=== PATIENT | male | born 1960 | race Caucasian/White ===

== ENCOUNTER 2017-08-26 09:01 | Inpatient (IN) | payer BC ==
[2017-08-26] MEDS ORDERED: FAMOTIDINE IV 20 MG/12 ML VIAL IVPUSH ONE (09:32)
[2017-08-26] MEDS ORDERED: ONDANSETRON 4 MG/2 ML VIAL IVPUSH ONE (09:33)
[2017-08-26] MEDS ORDERED: SUCRALFATE 1 GM/10 ML UNIT DOSE CUPS PO ONE (09:33)
[2017-08-26] MEDS ORDERED: MAG HYDROX/AL HYDROX/SIMETH 355 ML ORAL.SUSP PO ONE (09:33)
[2017-08-26] MEDS ORDERED: SODIUM CHLORIDE 1,000 ML IV STA (09:35)
--- NOTE | 2017-08-26 09:44 | PDOC ---
History of Present Illness - General Chief Complaint: Pain Stated Complaint: ABD PAIN Time Seen by Provider: 08/26/17 09:13 History Source: Patient, Family - History of Present Illness Timing/Duration: reports: other Abdominal Pain Onset Location: reports: epigastric Pain Radiation: reports: no radiation Past History - Past Medical History Allergies/Adverse Reactions: Allergies Allergy/AdvReac Type Severity Reaction Status Date / Time No Known Allergies Allergy Verified 08/26/17 09:06 Home Medications: Ambulatory Orders Omeprazole 40 mg PO DAILY 08/26/17 Ranitidine HCl 150 mg PO BID 08/26/17 COPD: No - Surgical History Cholecystectomy: Yes - Suicide/Smoking/Psychosocial Hx Smoking History: Never smoked Review of Systems - Review of Systems Constitutional: No: Chills, Fever, Unexplained wgt Loss Respiratory: No: Shortness of Breath Cardiac (ROS): No: Chest Pain ABD/GI: Yes: Nausea, Vomiting. No: Blood Streaked Bowels, Constipated, Diarrhea : Yes: Hematuria. No: Dysuria, Flank Pain *Physical Exam - Vital Signs Last Vital Signs Temp Pulse Resp BP Pulse Ox 98.2 F 69 18 122/68 99 08/26/17 09:02 08/26/17 09:02 08/26/17 09:02 08/26/17 09:02 08/26/17 09:02 - Physical Exam General Appearance: Yes: Appropriately Dressed, Mild Distress HEENT: positive: Normal Voice Neck: positive: Supple Respiratory/Chest: positive: Lungs Clear, Normal Breath Sounds. negative: Respiratory Distress Cardiovascular: positive: Regular Rate, S1, S2 Gastrointestinal/Abdominal: positive: Tender (sig ttp to epigatrium, no RUQ ttp , no CVAT) Musculoskeletal: positive: Normal Inspection. negative: CVA Tenderness Extremity: positive: Normal Inspection Integumentary: positive: Dry, Warm Neurologic: positive: Fully Oriented, Alert, Normal Mood/Affect ED Treatment Course - LABORATORY CBC & Chemistry Diagram: 08/26/17 10:05 08/26/17 10:05 Medical Decision Making - Medical Decision Making 08/26/17 09:43 57-year-old male, endorses history of gastric ulcer that was diagnosed on endoscopy 2 years ago on omeprazole daily, s/p fatou, here with severe nonradiating epigastric pain that started at 3 AM today and has been constant. Also complaining of 2 episodes of nonbilious, nonbloody vomitus. This a.m. Has not attempted to eat secondary to pain. No changes to bowel movements, fever or chills. Denies chest pain or shortness of breath. Patient also reporting intermittent "red urine" for the past 2 weeks without dysuria or flank pain. Has not been medically evaluated for unclear reasons. Does not currently have a PMD. No history of kidney stones. Non-smoker. No unexplained weight loss. Also c/o generalized pruritis x 2 weeks. No h/o liver disease and no etoh use per pt See exam Epigastric pain w/ dark urine and pruritis Concern for liver pathology, s/p fatou though can have a de alma CBD stone -pain control -labs -US -?CT 08/26/17 11:25 White count of 16 with significantly elevated LFTs including alk phos of >700 and bilirubin of 5. Will get ultrasound at this time as d/w Dr Garcia. Will possibly need MRCP or EUS 08/26/17 12:33 US read as specific dilatation of common bile duct 0.7 cm. Liver appears unremarkable with no obvious mass seen. Will admit and consult with GI at this point for possible MRCP 08/26/17 12:44 Case discussed with hospitalist and patient admitted. Blood culture and antibiotics in progress as discussed with Liz 08/26/17 13:33 Case d/w Dr. Kruger who will evaluate patient *DC/Admit/Observation/Transfer Diagnosis at time of Disposition: Epigastric pain, Transaminitis - Discharge Dispostion Condition at time of disposition: Fair Admit: Yes - Referrals - Patient Instructions - Post Discharge Activity
[2017-08-26] MEDS ORDERED: ONDANSETRON 4 MG/2 ML VIAL ONE (10:09)
[2017-08-26] MEDS ORDERED: MAG HYDROX/AL HYDROX/SIMETH 30 ML UNIT-DOSE CUP ONE (10:09)
[2017-08-26] MEDS ORDERED: SUCRALFATE 1 GM TABLET (FP) ONE (10:09)
[2017-08-26] MEDS ORDERED: FAMOTIDINE 20 MG/50 ML IVPB 20 MG/50 ML MG IVPB ONE (10:09)
[2017-08-26 10:20] LABS: BASO % 0.2 % (0-2.0); EOS % 0.1 % (0-4.5); HEMATOCRIT 37.9 % (35.4-49); HEMOGLOBIN 12.6 GM/dL (11.7-16.9); LYMPH % 7.6 % (8-40); MCHC 33.2 g/dl (32.0-35.9); MEAN CELL VOLUME 96.6 fl (80-96); MEAN PLT VOLUME 9.9 fl (7.5-11.1); MONO % 6.5 % (3.8-10.2); NEUT % 85.6 % (42.8-82.8); PLATELET COUNT 296 K/MM3 (134-434); RBC 3.93 M/mm3 (4.00-5.60); RDW 14.8 % (11.9-15.9); WHITE BLOOD COUNT 16.8 K/mm3 (4.0-10.0)
[2017-08-26 10:23] LABS: URINE APPEARANCE SLCLOUDY; URINE BLOOD 1+ (NEGATIVE); URINE COLOR AMBER; URINE GLUCOSE (UA) NEGATIVE (NEGATIVE); URINE KETONE NEGATIVE (NEGATIVE); URINE LEUK ESTERASE NEGATIVE (NEGATIVE); URINE NITRITE NEGATIVE (NEGATIVE); URINE PROTEIN NEGATIVE (NEGATIVE); URINE UROBILINOGEN 4.0 E.U/dl mg/dL (0.2-1.0)
[2017-08-26 10:28] LABS: EPI CELLS RARE /HPF (FEW); URINE BACTERIA RARE /hpf (NONE SEEN); URINE MUCUS FEW
[2017-08-26 10:47] LABS: ALBUMIN 3.2 g/dl (3.4-5.0); ANION GAP 8 (8-16); BILIRUBIN,TOTAL 5.3 mg/dL (0.2-1.0); BLOOD UREA NITROGEN 19 mg/dL (7-18); CALCIUM 9.1 mg/dL (8.5-10.1); CHLORIDE 103 mmol/L (98-107); CO2 26 mmol/L (21-32); GLUCOSE,RANDOM 172 mg/dL (74-106); LIPASE 160 U/L (73-393); POTASSIUM 4.1 mmol/L (3.5-5.1); SGOT/AST 176 U/L (15-37); SGPT/ALT 254 U/L (12-78); SODIUM 137 mmol/L (136-145); TOT PROT 8.1 g/dl (6.4-8.2)
[2017-08-26 10:50] LABS: ALK PHOS 709 U/L (45-117)
[2017-08-26] MEDS ORDERED: morphine CARPU-JECT 4 MG/1 ML DISP.SYRIN IVPUSH ONE (11:47)
[2017-08-26] MEDS ORDERED: morphine CARPU-JECT 10 MG/1 ML DISP.SYRIN ONE (12:00)
[2017-08-26] MEDS ORDERED: PIPERACILLIN/TAZOB 3.375 GM/50 ML PRE-DOCKED IVPB ONE (12:45)
[2017-08-26] MEDS ORDERED: PIPERACILLIN/TAZOB 3.375 GM 3.375 GM/50 ML BAG IVPB ONE (13:21)
[2017-08-26] MEDS ORDERED: morphine CARPU-JECT 10 MG/1 ML DISP.SYRIN IVPUSH PRN (13:35)
--- NOTE | 2017-08-26 13:40 | HP ---
Admitting History and Physical - Admission Chief Complaint: Abd pain, N/V History of Present Illness: 57 y/o gentleman with h/o PUD , and CCY 2002 who presented with acute onset Abd pain since 4 am this am . last night , 4 hours after dinner he had an episode of burning in epigastric area , then resolved . this am at 4 am he developed sharp pain, pain was located in epigastric area, with no radiation. he also had N/V or what he ate the night before. denies hematemesis. no diarrhea or constipation, has no fever or chills. denies dysuria . for the past 3 -4 weeks, he has not been feeling well, and has been noticing red urine ( tea color) and itching . No one told him he was yellow. He has a h/o CCY due to stones in 2002, since then he denies any Abd pain . Last EGD and colonoscopy were last year in [facility], he was told he had ulcer in stomach . He marshall snot have GI doc or PCP in [place] . In ER: LFTS were elevated, US with mild dilation in CBD 0.7 cm . given a dose of zosyn, and blood cx were sent History Source: Patient, Family Member Limitations to Obtaining History: No Limitations - Past Medical History Gastrointestinal: Yes: Peptic Ulcer Disease - Past Surgical History Past Surgical History: Yes: Cholecystectomy (2002) - Smoking History Smoking history: Current some day smoker (occasional [place] smoker once a week) Have you smoked in the past 12 months: Yes - Alcohol/Substance Use Hx Alcohol Use: No History of Substance Use: reports: None - Social History ADL: Independent Home Medications - Allergies Allergies/Adverse Reactions: Allergies Allergy/AdvReac Type Severity Reaction Status Date / Time No Known Allergies Allergy Verified 08/26/17 09:06 - Home Medications Home Medications: Ambulatory Orders Omeprazole 20 mg PO DAILY 08/26/17 Ranitidine HCl 150 mg PO BID 08/26/17 Family Disease History - Family Disease History Family History: Unremarkable Other Family History: no Hx of colon cancer or pancreatic cancer Review of Systems - Review of Systems Constitutional: reports: Chills (once 3 weeks ago). denies: Diaphoresis, Fever , Lethargy, Malaise, Night Sweats, Weakness Eyes: denies: Blind Spots, Blurred Vision, Double Vision, Eye Pain, Photophobia HENT: denies: Difficult Swallowing, Ear Discharge, Ear Pain, Hearing Loss, Throat Pain Neck: denies: Decreased ROM, Lumps, Pain on Movement, Stiffness, Tenderness Cardiovascular: denies: Chest Pain, Edema, Palpitations, Shortness of Breath Respiratory: denies: Cough, Exercise Intolerance, Hemoptysis, Snoring, SOB Gastrointestinal: reports: Abdominal Pain. denies: Bloating, Constipation, Diarrhea, Dysphagia, Melena, Nausea, Vomiting Genitourinary: denies: Burning, Discharge, Dysuria Breasts: denies: Breast Implants, Discharge from Nipple, Pain, Skin Changes Musculoskeletal: denies: Back Pain, Crepitus, Muscle Pain Neurological: denies: Change in LOC, Change in Speech, Confusion, Headache, Seizure, Syncope, Tremors Psychiatric: denies: Anxiety, Depression Physical Examination Vital Signs: Vital Signs Temperature 98.2 F 08/26/17 09:02 Pulse Rate 68 08/26/17 13:00 Respiratory Rate 20 08/26/17 13:00 Blood Pressure 114/89 08/26/17 13:00 O2 Sat by Pulse Oximetry (%) 99 08/26/17 09:02 Findings/Remarks: NAD , AAOx3 . pleasant and cooperative HEENT: EOMI, round equal pupils reactive tolight , icteric sclera, jaundiced MM and skin. no facial droop. No JVD . MMM CV: RRR, 2/6 SM at RUSB, no JVD Lungs: CTAB Abd: soft, ND, TTP in epigastric area with no rebound tenderness or guarding, nl BS . Ext: no erythema or edema . neuro : EOMI, round equal pupils reactive to light , no facial droop, uvula at mid line . strength 5/5 in upper and lower extremities , proximally and distally. reflexes 2+ knee jerk , and 2+ biceps b/l . HENT: Yes: Drooling Labs: CBC, BMP 08/26/17 10:05 08/26/17 10:05 Imaging - Results Ultrasound: Report Reviewed Assessment/Plan 57 y/o gentleman with h/o PUD , and CCY 2002 who presented with acute onset Abd pain since 4 am this am. he was found to have LFTS abn and mild dilationin CBD 1- Abd pain: in the setting of leukocytosis , hyperbiribunemia and a cholestatic picture of LFTs Abn, with acute onset abd pain, there is a high suspicion for acute cholangitis from an obstructing stone. With the h/o itching and dark urine x 3-4 weeks , an obstructive pancreatic mass or a cholangiocarcinoma need to be R/O. - start ceftriaxone and flagyl . - blood cx sent - Urgent MRCP w mayo to evaluate CBD and pancreas paranchyma - will call GI for possible gabrielle fro urgent ERCP if an obstructive stone is found - follow LFTS - check lactic acid - start IVF. - NPO pending further Recs from GI 2- Volume depletion : elevated BUN. - IVF 3- h/o PUD: no suspicion for perforation. - Iv PPI 4- Dvt px: SCDs for now , hold heparin pending any ERCP . Plan was explained to pt and his son at bed side Visit type - Emergency Visit Emergency Visit: Yes ED Registration Date: 08/26/17 Care time: The patient presented to the Emergency Department on the above date and was hospitalized for further evaluation of their emergent condition. - New Patient This patient is new to me today: Yes Date on this admission: 08/26/17 - Critical Care Critical Care patient: No
[2017-08-26] MEDS ORDERED: SODIUM CHLORIDE 1,000 ML IV SCH (13:45)
[2017-08-26] MEDS ORDERED: PANTOPRAZOLE SODIUM 40 MG VIAL ONE (14:09)
--- NOTE | 2017-08-26 14:10 | EKG ---
Test Reason : Blood Pressure : / mmHG Vent. Rate : 065 BPM Atrial Rate : 065 BPM P-R Int : 156 ms QRS Dur : 074 ms QT Int : 408 ms P-R-T Axes : 038 006 012 degrees QTc Int : 424 ms NORMAL SINUS RHYTHM NORMAL ECG NO PREVIOUS ECGS AVAILABLE Confirmed by RANJIT IVAN, JOSE ([id number]) on 08/26/2017 2:10:08 PM Referred By: Confirmed By:JOSE CHURCH MD
[2017-08-26] MEDS: PANTOPRAZOLE SODIUM 40 MG VIAL IVPUSH SCH (14:15)
[2017-08-26 15:24] VITALS: BMI 23.3
--- NOTE | 2017-08-26 15:55 | CON.GI ---
Consult Consult Specialty:: Gastroenterology ( covering Dr Phillip) Referred by:: Dr. Arden Wagner Reason for Consultation:: Jaundice and pain - History of Present Illness Chief Complaint: Awoken at 4AM with severe colicky epigastric pain History of Present Illness: 57M was awoken at 4AM with severe epigastric colicky pain. It is different form his remote ulcer pain and not responsive to omeprazole and maalox. It does not radiate. He has nausea but no vomiting. He has had pruritus, dark urine and malaise for the past 3 weeks. He denies weight loss and melena. He had a cholecystectomy remotely. He has never had a colonosocpy but did have an EGD that discovered his ulcer. No transfusions. Denies liver disease. 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 Place of : Other ([facility]) History of Recent Travel: No Home Medications - Allergies Allergies/Adverse Reactions: Allergies Allergy/AdvReac Type Severity Reaction Status Date / Time No Known Allergies Allergy Verified 08/26/17 09:06 - Home Medications Home Medications: Ambulatory Orders Omeprazole 20 mg PO DAILY 08/26/17 Ranitidine HCl 150 mg PO BID 08/26/17 Family Disease History - Family Disease History Family Disease History: Heart Disease: Father ( [place] age 65), Other: Mother ( young unknown circumstances) Other Family History: no Hx of colon cancer or pancreatic cancer Review of Systems - Review of Systems Constitutional: reports: Loss of Appetite, Malaise Eyes: reports: No Symptoms HENT: reports: No Symptoms Neck: reports: No Symptoms Cardiovascular: reports: No Symptoms Respiratory: reports: No Symptoms Gastrointestinal: reports: Abdominal Pain, Nausea Genitourinary: reports: No Symptoms Musculoskeletal: reports: No Symptoms Integumentary: reports: No Symptoms Neurological: reports: No Symptoms Physical Exam-GI Vital Signs: Vital Signs Temperature 98.2 F 08/26/17 09:02 Pulse Rate 68 08/26/17 15:18 Respiratory Rate 18 08/26/17 15:18 Blood Pressure 149/63 08/26/17 15:18 O2 Sat by Pulse Oximetry (%) 96 08/26/17 15:18 CBC,CMP WBC 16.8 K/mm3 (4.0-10.0) H 08/26/17 10:05 RBC 3.93 M/mm3 (4.00-5.60) L 08/26/17 10:05 Hgb 12.6 GM/dL (11.7-16.9) 08/26/17 10:05 Hct 37.9 % (35.4-49) 08/26/17 10:05 MCV 96.6 fl (80-96) H 08/26/17 10:05 MCH 32.0 pg (25.7-33.7) 08/26/17 10:05 MCHC 33.2 g/dl (32.0-35.9) 08/26/17 10:05 RDW 14.8 % (11.9-15.9) 08/26/17 10:05 Plt Count 296 K/MM3 (134-434) 08/26/17 10:05 MPV 9.9 fl (7.5-11.1) 08/26/17 10:05 Neutrophils % 85.6 % (42.8-82.8) H 08/26/17 10:05 Lymphocytes % 7.6 % (8-40) L 08/26/17 10:05 Monocytes % 6.5 % (3.8-10.2) 08/26/17 10:05 Eosinophils % 0.1 % (0-4.5) 08/26/17 10:05 Basophils % 0.2 % (0-2.0) 08/26/17 10:05 Sodium 137 mmol/L (136-145) 08/26/17 10:05 Potassium 4.1 mmol/L (3.5-5.1) 08/26/17 10:05 Chloride 103 mmol/L (98-107) 08/26/17 10:05 Carbon Dioxide 26 mmol/L (21-32) 08/26/17 10:05 Anion Gap 8 (8-16) 08/26/17 10:05 BUN 19 mg/dL (7-18) H 08/26/17 10:05 Creatinine 1.0 mg/dL (0.7-1.3) 08/26/17 10:05 Creat Clearance w eGFR > 60 (>60) 08/26/17 10:05 Random Glucose 172 mg/dL (74-106) H 08/26/17 10:05 Lactic Acid 1.7 mmol/L (0.4-2.0) 08/26/17 14:10 Calcium 9.1 mg/dL (8.5-10.1) 08/26/17 10:05 Total Bilirubin 5.3 mg/dL (0.2-1.0) H 08/26/17 10:05 AST 176 U/L (15-37) H 08/26/17 10:05 ALT 254 U/L (12-78) H 08/26/17 10:05 Alkaline Phosphatase 709 U/L (45-117) H 08/26/17 10:05 Creatine Kinase 67 IU/L (39-308) 08/26/17 10:05 Troponin I < 0.02 ng/ml (0.00-0.05) 08/26/17 10:05 Total Protein 8.1 g/dl (6.4-8.2) 08/26/17 10:05 Albumin 3.2 g/dl (3.4-5.0) L 08/26/17 10:05 Lipase 160 U/L (73-393) 08/26/17 10:05 Current Medications Generic Name Dose Route Start Last Admin Trade Name Freq PRN Reason Stop Dose Admin Sodium Chloride 1,000 mls @ 75 mls/hr 08/26/17 13:45 08/26/17 13:47 Normal Saline - IV 75 mls/hr ASDIR STACEY Administration CEFTRIAXONE 1 G/50 ML PREMIX 50 mls @ 100 mls/hr 08/26/17 19:00 Ceftriaxone 1 Gm-D5w Bag IVPB DAILY STACEY Metronidazole 500 mg in 100 mls @ 100 mls/hr 08/26/17 18:00 Flagyl 500mg Premixed Ivpb - IVPB Q8H-IV STACEY Morphine Sulfate 2 mg 08/26/17 13:35 Morphine Injection - IVPUSH Q4H PRN PAIN Pantoprazole Sodium 40 mg 08/26/17 13:45 08/26/17 14:15 Protonix Iv IVPUSH 40 mg DAILY STACEY Administration Constitutional: Yes: Calm Eyes: Yes: Sclera Icterus HENT: Yes: Normocephalic Neck: Yes: Supple Cardiovascular: Yes: Regular Rate and Rhythm Respiratory: Yes: CTA Bilaterally Gastrointestinal Inspection: Yes: Scars (healed lap choly incisions) ...Auscultate: Yes: Normoactive Bowel Sounds ...Palpate: Yes: Tenderness, Epigastium (mild) ...Rectal Exam: Yes: Guaiac Negative, Sphincter Tone Normal Genitourinary: Yes: Other (1+ prostate) Edema: No Peripheral Pulses WNL: Yes Neurological: Yes: Alert, Oriented Labs: CBC, BMP 08/26/17 10:05 08/26/17 10:05 Laboratory Tests 08/26/17 10:05 Total Bilirubin 5.3 H AST 176 H ALT 254 H Alkaline Phosphatase 709 H Lipase 160 Imaging - Results Ultrasound: Image Reviewed (cbd 7mm) Problem List - Problems (1) Biliary colic Code(s): K80.50 - CALCULUS OF BILE DUCT W/O CHOLANGITIS OR CHOLECYST W/O OBST (2) Obstructive jaundice Assessment/Plan: Suspect recurrent gallstones as the cause of biliary colic, jaundice,dark urine and pruritus. I have discussed the likely need for ERCP , sphincterotomy and stenting to relieve jaundice due to stones or malignancy. I have informed him of the risks of ascending cholangitis, liver failure and biliary pancreatitis with his current condition. I have explained to risks of perforation, hemorrhage and multiorgan failure that can arise as a result of ERCP induced pancreatitis. He has signed an informed consent. I will try to schedule tomorrow. I have asked for Dr Frost to call me with the MRCP results. Agree with the need for antibiotics to protect against ascending cholangitis. Discussed the case with Dr Wagner. Dr Phillip will return tomorrow. Code(s): K83.8 - OTHER SPECIFIED DISEASES OF BILIARY TRACT (3) History of peptic ulcer Code(s): Z87.11 - PERSONAL HISTORY OF PEPTIC ULCER DISEASE (4) History of laparoscopic cholecystectomy Code(s): Z98.890 - OTHER SPECIFIED POSTPROCEDURAL STATES; Z90.49 - ACQUIRED ABSENCE OF OTHER SPECIFIED PARTS OF DIGESTIVE TRACT
[2017-08-26] MEDS ORDERED: diphenhydrAMINE HCL 25 MG CAPSULE (FP) PO PRN (16:24)
[2017-08-26] MEDS: METRONIDAZOLE 500 MG PREMIXED 500 MG/100 ML MG IVPB SCH (18:22)
[2017-08-26] MEDS: CEFTRIAXONE 1 G/50 ML PREMIX 50 ML IVPB SCH (18:22)
[2017-08-26] MEDS ORDERED: METRONIDAZOLE 500 MG PREMIXED 500 MG/100 ML MG IVPB SCH (20:00)
[2017-08-26] MEDS ORDERED: CEFTRIAXONE 1 GM in DEXTROSE 5%-WATER - 50 ML IVPB SCH (20:00)
[2017-08-27] MEDS: METRONIDAZOLE 500 MG PREMIXED 500 MG/100 ML MG IVPB SCH ×3 (02:49→18:03)
--- NOTE | 2017-08-27 05:43 | PN ---
Physical Exam: SUBJECTIVE: Patient seen and examined OBJECTIVE: Vital Signs Period Temp Pulse Resp BP Sys/Gill Pulse Ox Last 24 Hr 98.0 F-98.2 F 57-69 18-20 112-149/55-89 94-99 GENERAL: The patient is awake, alert, and fully oriented, in no acute distress. HEAD: Normal with no signs of trauma. EYES: PERRL, extraocular movements intact, sclera anicteric, conjunctiva clear. No ptosis. ENT: Ears normal, nares patent, oropharynx clear without exudates, moist mucous membranes. NECK: Trachea midline, full range of motion, supple. LUNGS: Breath sounds equal, clear to auscultation bilaterally, no wheezes, no crackles, no accessory muscle use. HEART: Regular rate and rhythm, S1, S2 without murmur, rub or gallop. ABDOMEN: Soft, nontender, nondistended, normoactive bowel sounds, no guarding, no rebound, no hepatosplenomegaly, no masses. EXTREMITIES: 2+ pulses, warm, well-perfused, no edema. NEUROLOGICAL: Cranial nerves II through XII grossly intact. Normal speech, gait not observed. PSYCH: Normal mood, normal affect. SKIN: Warm, dry, normal turgor, no rashes or lesions noted Laboratory Results - last 24 hr 08/26/17 08/26/17 08/26/17 10:03 10:05 10:05 WBC 16.8 H RBC 3.93 L Hgb 12.6 Hct 37.9 MCV 96.6 H MCH 32.0 MCHC 33.2 RDW 14.8 Plt Count 296 MPV 9.9 Neutrophils % 85.6 H Lymphocytes % 7.6 L Monocytes % 6.5 Eosinophils % 0.1 Basophils % 0.2 Sodium 137 Potassium 4.1 Chloride 103 Carbon Dioxide 26 Anion Gap 8 BUN 19 H Creatinine 1.0 Creat Clearance w eGFR > 60 Random Glucose 172 H Lactic Acid Calcium 9.1 Total Bilirubin 5.3 H AST 176 H ALT 254 H Alkaline Phosphatase 709 H Creatine Kinase 67 Troponin I < 0.02 Total Protein 8.1 Albumin 3.2 L Lipase 160 Urine Color Mary Urine Appearance Slcloudy Urine pH 5.0 Ur Specific Wana 1.026 Urine Protein Negative Urine Glucose (UA) Negative Urine Ketones Negative Urine Blood 1+ H Urine Nitrite Negative Urine Bilirubin 4.0 Urine Urobilinogen 4.0 e.u/dl Ur Leukocyte Esterase Negative Urine WBC (Auto) 3 Urine RBC (Auto) 2 Ur Epithelial Cells Rare Urine Bacteria Rare Urine Mucus Few 08/26/17 14:10 WBC RBC Hgb Hct MCV MCH MCHC RDW Plt Count MPV Neutrophils % Lymphocytes % Monocytes % Eosinophils % Basophils % Sodium Potassium Chloride Carbon Dioxide Anion Gap BUN Creatinine Creat Clearance w eGFR Random Glucose Lactic Acid 1.7 Calcium Total Bilirubin AST ALT Alkaline Phosphatase Creatine Kinase Troponin I Total Protein Albumin Lipase Urine Color Urine Appearance Urine pH Ur Specific Wana Urine Protein Urine Glucose (UA) Urine Ketones Urine Blood Urine Nitrite Urine Bilirubin Urine Urobilinogen Ur Leukocyte Esterase Urine WBC (Auto) Urine RBC (Auto) Ur Epithelial Cells Urine Bacteria Urine Mucus Active Medications Generic Name Dose Route Start Last Admin Trade Name Freq PRN Reason Stop Dose Admin Diphenhydramine HCl 25 mg 08/26/17 16:24 Benadryl - PO Q8H PRN FOR ITCHING Sodium Chloride 1,000 mls @ 75 mls/hr 08/26/17 13:45 08/26/17 13:47 Normal Saline - IV 75 mls/hr ASDIR STACEY Administration CEFTRIAXONE 1 G/50 ML PREMIX 50 mls @ 100 mls/hr 08/26/17 19:00 08/26/17 18: 22 Ceftriaxone 1 Gm-D5w Bag IVPB 100 mls/hr DAILY STACEY Administration Metronidazole 500 mg in 100 mls @ 100 mls/hr 08/26/17 18:00 08/27/17 02:49 Flagyl 500mg Premixed Ivpb - IVPB 100 mls/hr Q8H-IV STACEY Administration Morphine Sulfate 2 mg 08/26/17 13:35 Morphine Injection - IVPUSH Q4H PRN PAIN Pantoprazole Sodium 40 mg 08/26/17 13:45 08/26/17 14:15 Protonix Iv IVPUSH 40 mg DAILY STACEY Administration ASSESSMENT/PLAN: Visit type - Emergency Visit Emergency Visit: Yes ED Registration Date: 08/26/17 Care time: The patient presented to the Emergency Department on the above date and was hospitalized for further evaluation of their emergent condition. - New Patient This patient is new to me today: Yes Date on this admission: 08/27/17 - Critical Care Critical Care patient: No
--- NOTE | 2017-08-27 08:13 | PN ---
Physical Exam: SUBJECTIVE: Patient seen and examined. Feels better than yesterday. Continues to have some abdominal pain, but reports less than yesterday. No BM today. Denies fever, chills, n/v. No sob or CP. OBJECTIVE: Vital Signs Period Temp Pulse Resp BP Sys/Gill Pulse Ox Last 24 Hr 98.0 F-98.2 F 56-69 18-20 112-149/55-89 94-99 GENERAL: sitting in bed, nad, aaox3, family at bedside EYES: sclera icterus, conjunctiva clear ENT: MMM LUNGS: CTAB HEART: rrr, normal s1/s2, no m/r/g ABDOMEN: Soft, non-distened, mild ttp to deep palpation in RUQ < epigastric area , normoactive BS bowel sounds LOWER EXTREMITIES: 2+ DP pulses, wwp, no edema NEUROLOGICAL: Cranial nerves II through XII grossly intact. Normal speech, gait not observed. PSYCH: Normal mood, normal affect. SKIN: Warm, dry, normal turgor, no rashes or lesions noted CBC, BMP 08/27/17 09:49 08/27/17 09:49 Hepatic Panel Total Bilirubin 6.0 mg/dL (0.2-1.0) H 08/27/17 09:49 AST 104 U/L (15-37) H D 08/27/17 09:49 ALT 174 U/L (12-78) H D 08/27/17 09:49 Alkaline Phosphatase 568 U/L (45-117) H 08/27/17 09:49 Albumin 2.7 g/dl (3.4-5.0) L 08/27/17 09:49 Microbiology 08/26/17 13:36 Blood - Peripheral Venous Blood Culture - Preliminary NO GROWTH OBTAINED AFTER 24 HOURS, INCUBATION TO CONTINUE FOR 4 DAYS. 08/26/17 13:36 Blood - Peripheral Venous Blood Culture - Preliminary NO GROWTH OBTAINED AFTER 24 HOURS, INCUBATION TO CONTINUE FOR 4 DAYS. 08/26/17 10:03 Urine - Urine Clean Catch Urine Culture - Final NO GROWTH OBTAINED Active Medications Diphenhydramine HCl (Benadryl -) 25 mg PO Q8H PRN PRN Reason: FOR ITCHING Metronidazole (Flagyl 500mg Premixed Ivpb -) 500 mg in 100 mls @ 100 mls/hr IVPB Q8H-IV STACEY Last Admin: 08/27/17 18:03 Dose: 100 mls/hr Cefazolin Sodium (Ancef -) 1 gm in 10 mls @ 100 mls/hr IVPUSH Q8H-IV STACEY Last Admin: 08/27/17 20:13 Dose: 100 mls/hr Lactated Ringer's (Lactated Ringers Solution) 1,000 ml in 1,000 mls @ 175 mls/ hr IV ASDIR STAECY Stop: 08/28/17 06:00 Last Admin: 08/27/17 22:49 Dose: 175 mls/hr Lactated Ringer's (Lactated Ringers Solution) 1,000 ml in 1,000 mls @ 150 mls/ hr IV ASDIR STACEY Stop: 08/28/17 12:00 Lactated Ringer's (Lactated Ringers Solution) 1,000 ml in 1,000 mls @ 125 mls/ hr IV ASDIR STACEY Morphine Sulfate (Morphine Injection -) 2 mg IVPUSH Q4H PRN PRN Reason: PAIN Pantoprazole Sodium (Protonix -) 40 mg PO DAILY [facility] Last Admin: 08/27/17 18:03 Dose: 40 mg ASSESSMENT/PLAN: 57yo man with PMH of PUD and CCY (2002) who presented with acute onset abdominal pain and found to have elevated LFTs and dilated CBD suspicious for cholangitis. #abdominal with WBC, abnormal LFTs and acute onset abdominal pain, which have improved today. Possibly patient passed retained stone. MRCP revealed no stones , only mildly dilated CBD. -GI consulted. Will go for ERCP today to r/o choledocholithiasis, cholangitis -start ceftriaxone and flagyl -f/u cultures -IVFs, will d/c when diet advanced per GI #h/o PUD - will switch IVP to PO after ERCP #FEN: IVF / lytes wnl / NPO, advance per GI #PPX -DVT - hold A/C 48h post ERCP, SCD's -GI - on PPI #DISPO: continue m/s FULL code d/w Dr. Bernard Ruth MD PGY1 - Internal Medicine Visit type - Emergency Visit Emergency Visit: No - New Patient This patient is new to me today: Yes Date on this admission: 08/27/17 - Critical Care Critical Care patient: No
[2017-08-27 09:54] LABS: BASO % 1.6 % (0-2.0); EOS % 1.3 % (0-4.5); HEMATOCRIT 35.2 % (35.4-49); HEMOGLOBIN 11.7 GM/dL (11.7-16.9); LYMPH % 25.7 % (8-40); MCH 32.5 pg (25.7-33.7); MCHC 33.3 g/dl (32.0-35.9); MEAN CELL VOLUME 97.5 fl (80-96); MONO % 10.7 % (3.8-10.2); NEUT % 60.7 % (42.8-82.8); PLATELET COUNT 245 K/MM3 (134-434); RBC 3.61 M/mm3 (4.00-5.60); RDW 14.9 % (11.9-15.9); WHITE BLOOD COUNT 6.9 K/mm3 (4.0-10.0)
[2017-08-27] MEDS ORDERED: PT OWN MED DRAWER 7, Y5N ONE ×2 (09:57→18:11)
[2017-08-27 10:19] LABS: INR 1.11 (0.82-1.09); PROTHROMBIN TIME (PATIENT) 12.5 SEC (9.98-11.88)
[2017-08-27 10:37] LABS: ALBUMIN 2.7 g/dl (3.4-5.0); ALK PHOS 568 U/L (45-117); ANION GAP 8 (8-16); BLOOD UREA NITROGEN 13 mg/dL (7-18); CALCIUM 8.9 mg/dL (8.5-10.1); CHLORIDE 109 mmol/L (98-107); CO2 25 mmol/L (21-32); CREATININE 0.9 mg/dL (0.7-1.3); GLUCOSE,RANDOM 104 mg/dL (74-106); MAGNESIUM 2.2 mg/dL (1.8-2.4); PHOSPHOROUS 2.8 mg/dL (2.5-4.9); POTASSIUM 3.8 mmol/L (3.5-5.1); SGOT/AST 104 U/L (15-37); SGPT/ALT 174 U/L (12-78); SODIUM 142 mmol/L (136-145); TOT PROT 6.8 g/dl (6.4-8.2)
[2017-08-27] MEDS: CEFTRIAXONE 1 G/50 ML PREMIX 50 ML IVPB SCH (11:12)
[2017-08-27] MEDS: PANTOPRAZOLE SODIUM 40 MG VIAL IVPUSH SCH (11:12)
--- NOTE | 2017-08-27 11:30 | PN ---
Progress Note, Physician History of Present Illness: Had RUQ pain last night. Good response to pain medication. Asymptomatic this am. Comfortable. Family at bedside. - Current Medication List Current Medications: Active Medications Diphenhydramine HCl (Benadryl -) 25 mg PO Q8H PRN PRN Reason: FOR ITCHING Sodium Chloride (Normal Saline -) 1,000 mls @ 75 mls/hr IV ASDIR [facility] Last Admin: 08/26/17 13:47 Dose: 75 mls/hr CEFTRIAXONE 1 G/50 ML PREMIX (Ceftriaxone 1 Gm-D5w Bag) 50 mls @ 100 mls/hr IVPB DAILY [facility] Last Admin: 08/27/17 11:12 Dose: 100 mls/hr Metronidazole (Flagyl 500mg Premixed Ivpb -) 500 mg in 100 mls @ 100 mls/hr IVPB Q8H-IV [facility] Last Admin: 08/27/17 10:01 Dose: 100 mls/hr Morphine Sulfate (Morphine Injection -) 2 mg IVPUSH Q4H PRN PRN Reason: PAIN Pantoprazole Sodium (Protonix Iv) 40 mg IVPUSH DAILY [facility] Last Admin: 08/27/17 11:12 Dose: 40 mg - Objective Vital Signs: Vital Signs Temperature 98.2 F 08/27/17 08:39 Pulse Rate 52 L 08/27/17 08:39 Respiratory Rate 18 08/27/17 08:39 Blood Pressure 135/75 08/27/17 08:39 O2 Sat by Pulse Oximetry (%) 94 L 08/26/17 21:00 Constitutional: Yes: Well Nourished, No Distress, Calm Gastrointestinal: Yes: Soft. No: Distention, Melena, Rectal Bleeding, Tenderness, Tenderness, Epigastrium, Tenderness, Rebound Neurological: Yes: Alert, Oriented Labs: CBC, BMP 08/27/17 09:49 08/27/17 09:49 INR, PTT INR 1.11 (0.82-1.09) 08/27/17 09:49 Abnormal Lab Results 08/27/17 08/27/17 08/27/17 09:49 09:49 09:49 RBC 3.61 L Hct 35.2 L MCV 97.5 H Monocytes % 10.7 H PT with INR 12.50 H Chloride 109 H Total Bilirubin 6.0 H AST 104 H D ALT 174 H D Alkaline Phosphatase 568 H Albumin 2.7 L - ....Imaging Ultrasound: Report Reviewed MRI: Report Reviewed Problem List - Problems (1) Cholestasis Code(s): K83.1 - OBSTRUCTION OF BILE DUCT (2) Biliary colic Code(s): K80.50 - CALCULUS OF BILE DUCT W/O CHOLANGITIS OR CHOLECYST W/O OBST (3) Obstructive jaundice Code(s): K83.8 - OTHER SPECIFIED DISEASES OF BILIARY TRACT Assessment/Plan Non-toxic apperance, comfortable. Abx abd pain control. ERCP planned for today.
[2017-08-27] MEDS ORDERED: PROPOFOL 20 ML ONE (14:56)
[2017-08-27] MEDS ORDERED: ROCURONIUM BROMIDE 50 MG/5 ML VIAL ONE (14:56)
[2017-08-27] MEDS ORDERED: ONDANSETRON 4 MG/2 ML VIAL ONE (14:56)
--- NOTE | 2017-08-27 15:34 | PN ---
Teaching Attending Note Name of Resident: Linda Ruth ATTENDING PHYSICIAN STATEMENT I saw and evaluated the patient. I reviewed the resident's note and discussed the case with the resident. I agree with the resident's findings and plan as documented. SUBJECTIVE: no fever or chills, Abd pain has significantly improved . no N/V. OBJECTIVE: NAD , AAOx3 . pleasant and cooperative HEENT: icteric sclera, jaundiced MM and skin. No JVD . MMM CV: RRR, 2/6 SM at RUSB, no JVD Lungs: CTAB Abd: soft, ND, minimal TTP in epigastric area with no rebound tenderness or guarding, nl BS . Ext: no erythema or edema . ASSESSMENT AND PLAN: 57 y/o gentleman with h/o PUD , and CCY 2002 who presented with acute onset Abd pain since 4 am this am. he was found to have LFTS abn and mild dilationin CBD 1- Transaminitis: MRCP with no evidence stones, or tumors. LFTS abn ( cholestatic picture), and acute onset abd pain yesterday am along with decreased ALT, ASt suggest a passed stone. The h/o itching nad dark urine x 4 weeks suggest a chronic ongowing process. ? primary sclerosing cholangitis - ERCP today - check P-ANCA - check AMA , KATELYNN , ANd anti-LK abs - after ERCP might introduce diet , dmitry d/w GI - cont Ceftriaxone and flagyl - if allowed to eat, will dc IVF 2- h/o PUD: - PPI . can switch to po after procedure 4- Dvt px: SCDs for now , hold heparin pending any ERCP.
[2017-08-27] MEDS ORDERED: NEOSTIGMINE METHYLSULFATE 0.5 MG/1 ML - 10 ML MDV ONE (15:49)
--- NOTE | 2017-08-27 16:43 | PN ---
Progress Note (short form) - Note Progress Note: GI Procedure NOte: Please see scanned ERCP report. Had 4 CBD stones and pus extracted. Had bleeding after stone extractions so epinephrine was injected and a stent had to be placed. Findings discussed with family. Informed them of the need for repeat ERCP to remove stent in 3-4 months. Problem List - Problems (1) Biliary colic Code(s): K80.50 - CALCULUS OF BILE DUCT W/O CHOLANGITIS OR CHOLECYST W/O OBST (2) Obstructive jaundice Code(s): K83.8 - OTHER SPECIFIED DISEASES OF BILIARY TRACT (3) History of peptic ulcer Code(s): Z87.11 - PERSONAL HISTORY OF PEPTIC ULCER DISEASE (4) History of laparoscopic cholecystectomy Code(s): Z98.890 - OTHER SPECIFIED POSTPROCEDURAL STATES; Z90.49 - ACQUIRED ABSENCE OF OTHER SPECIFIED PARTS OF DIGESTIVE TRACT
[2017-08-27] MEDS: LACTATED RINGERS SOLUTION 1,000 ML/1,000 ML INFUS.BAG IV SCH ×2 (17:30→18:03)
[2017-08-27] MEDS: PANTOPRAZOLE 40 MG TABLET (FP) PO SCH (18:03)
[2017-08-27] MEDS: CEFAZOLIN 1 GM PUSH 1 GM/10 ML DISP.SYRIN IVPUSH SCH (20:13)
[2017-08-27] MEDS ORDERED: LACTATED RINGERS SOLUTION 1,000 ML/1,000 ML INFUS.BAG IV SCH (23:30)
[2017-08-28] MEDS: METRONIDAZOLE 500 MG PREMIXED 500 MG/100 ML MG IVPB SCH ×3 (03:16→17:14)
[2017-08-28] MEDS: CEFAZOLIN 1 GM PUSH 1 GM/10 ML DISP.SYRIN IVPUSH SCH ×3 (03:16→17:14)
[2017-08-28] MEDS ORDERED: LACTATED RINGERS SOLUTION 1,000 ML/1,000 ML INFUS.BAG IV SCH (06:00)
[2017-08-28 08:00] LABS: EOS % 0.8 % (0-4.5); HEMATOCRIT 33.6 % (35.4-49); HEMOGLOBIN 11.3 GM/dL (11.7-16.9); LYMPH % 19.6 % (8-40); MCH 32.4 pg (25.7-33.7); MCHC 33.6 g/dl (32.0-35.9); MEAN CELL VOLUME 96.2 fl (80-96); MEAN PLT VOLUME 10.6 fl (7.5-11.1); MONO % 10.2 % (3.8-10.2); NEUT % 68.4 % (42.8-82.8); PLATELET COUNT 234 K/MM3 (134-434); RBC 3.49 M/mm3 (4.00-5.60); RDW 14.8 % (11.9-15.9); WHITE BLOOD COUNT 8.8 K/mm3 (4.0-10.0)
[2017-08-28 08:33] LABS: ALBUMIN 2.4 g/dl (3.4-5.0); ALK PHOS 489 U/L (45-117); ANION GAP 10 (8-16); BILIRUBIN,TOTAL 5.2 mg/dL (0.2-1.0); BLOOD UREA NITROGEN 9 mg/dL (7-18); CALCIUM 8.7 mg/dL (8.5-10.1); CHLORIDE 105 mmol/L (98-107); CO2 26 mmol/L (21-32); CREATININE 0.9 mg/dL (0.7-1.3); GLUCOSE,RANDOM 124 mg/dL (74-106); POTASSIUM 3.6 mmol/L (3.5-5.1); SGOT/AST 85 U/L (15-37); SGPT/ALT 129 U/L (12-78); SODIUM 141 mmol/L (136-145); TOT PROT 6.2 g/dl (6.4-8.2)
[2017-08-28 08:41] LABS: INR 1.11 (0.82-1.09); PROTHROMBIN TIME (PATIENT) 12.5 SEC (9.98-11.88)
--- NOTE | 2017-08-28 08:55 | PN ---
Progress Note, Physician History of Present Illness: No events overnight. pain-free. No BMs, no vomiting, no back pain. Tmax 99.1 - Current Medication List Current Medications: Active Medications Diphenhydramine HCl (Benadryl -) 25 mg PO Q8H PRN PRN Reason: FOR ITCHING Metronidazole (Flagyl 500mg Premixed Ivpb -) 500 mg in 100 mls @ 100 mls/hr IVPB Q8H-IV [facility] Last Admin: 08/28/17 03:16 Dose: 100 mls/hr Cefazolin Sodium (Ancef -) 1 gm in 10 mls @ 100 mls/hr IVPUSH Q8H-IV [facility] Last Admin: 08/28/17 03:16 Dose: 100 mls/hr Lactated Ringer's (Lactated Ringers Solution) 1,000 ml in 1,000 mls @ 150 mls/ hr IV ASDIR [facility] Stop: 08/28/17 12:00 Last Admin: 08/28/17 06:16 Dose: 150 mls/hr Lactated Ringer's (Lactated Ringers Solution) 1,000 ml in 1,000 mls @ 125 mls/ hr IV ASDIR [facility] Morphine Sulfate (Morphine Injection -) 2 mg IVPUSH Q4H PRN PRN Reason: PAIN Pantoprazole Sodium (Protonix -) 40 mg PO DAILY [facility] [place] Last Admin: 08/27/17 18:03 Dose: 40 mg - Objective Vital Signs: Vital Signs Temperature 98.4 F 08/28/17 06:00 Pulse Rate 52 L 08/28/17 06:00 Respiratory Rate 20 08/28/17 06:00 Blood Pressure 129/70 08/28/17 06:00 O2 Sat by Pulse Oximetry (%) 96 08/27/17 17:15 Constitutional: Yes: No Distress, Calm Eyes: Yes: Conjunctiva Clear Gastrointestinal: Yes: Soft. No: Distention, Tenderness, Tenderness, Epigastrium, Tenderness, Rebound Neurological: Yes: Alert Labs: CBC, BMP 08/28/17 06:00 INR, PTT INR 1.11 (0.82-1.09) 08/27/17 09:49 Abnormal Lab Results 08/27/17 08/27/17 08/27/17 09:49 09:49 09:49 RBC 3.61 L Hgb Hct 35.2 L MCV 97.5 H Monocytes % 10.7 H PT with INR 12.50 H Chloride 109 H Total Bilirubin 6.0 H AST 104 H D ALT 174 H D Alkaline Phosphatase 568 H Albumin 2.7 L 08/28/17 06:00 RBC 3.49 L Hgb 11.3 L Hct 33.6 L MCV 96.2 H Monocytes % PT with INR Chloride Total Bilirubin AST ALT Alkaline Phosphatase Albumin Problem List - Problems (1) Cholestasis Code(s): K83.1 - OBSTRUCTION OF BILE DUCT (2) Biliary colic Code(s): K80.50 - CALCULUS OF BILE DUCT W/O CHOLANGITIS OR CHOLECYST W/O OBST (3) Obstructive jaundice Code(s): K83.8 - OTHER SPECIFIED DISEASES OF BILIARY TRACT Assessment/Plan Choledocolithiasis, cholangitis. S/p ercp w/ sphincterotomy, gallstones extraction, epi injection. Clinically doing well. Follow am labs
[2017-08-28] MEDS ORDERED: PT OWN MED DRAWER 7, Y5N ONE ×2 (08:57→17:08)
[2017-08-28] MEDS: PANTOPRAZOLE 40 MG TABLET (FP) PO SCH (09:10)
--- NOTE | 2017-08-28 12:32 | PN ---
Progress Note (short form) - Note Progress Note: Anesthesiology Post-op POD#1 s/p ERCP under GA. No ON issues, pt. without current complaints. VSS.
[2017-08-28] MEDS: LACTATED RINGERS SOLUTION 1,000 ML/1,000 ML INFUS.BAG IV SCH ×2 (14:09→23:40)
--- NOTE | 2017-08-28 14:21 | PN ---
Teaching Attending Note Name of Resident: Linda Ruth ATTENDING PHYSICIAN STATEMENT I saw and evaluated the patient. I reviewed the resident's note and discussed the case with the resident. I agree with the resident's findings and plan as documented. SUBJECTIVE: Patient is doing well, has no further pain. No fever or chills, no shortness of breath. OBJECTIVE: Vital Signs Temperature 98.4 F 08/28/17 06:00 Pulse Rate 52 L 08/28/17 06:00 Respiratory Rate 20 08/28/17 06:00 Blood Pressure 129/70 08/28/17 06:00 O2 Sat by Pulse Oximetry (%) 95 08/27/17 21:00 CBCD WBC 8.8 K/mm3 (4.0-10.0) 08/28/17 06:00 RBC 3.49 M/mm3 (4.00-5.60) L 08/28/17 06:00 Hgb 11.3 GM/dL (11.7-16.9) L 08/28/17 06:00 Hct 33.6 % (35.4-49) L 08/28/17 06:00 MCV 96.2 fl (80-96) H 08/28/17 06:00 MCHC 33.6 g/dl (32.0-35.9) 08/28/17 06:00 RDW 14.8 % (11.9-15.9) 08/28/17 06:00 Plt Count 234 K/MM3 (134-434) 08/28/17 06:00 MPV 10.6 fl (7.5-11.1) 08/28/17 06:00 CMP Sodium 141 mmol/L (136-145) 08/28/17 06:00 Potassium 3.6 mmol/L (3.5-5.1) 08/28/17 06:00 Chloride 105 mmol/L (98-107) 08/28/17 06:00 Carbon Dioxide 26 mmol/L (21-32) 08/28/17 06:00 Anion Gap 10 (8-16) 08/28/17 06:00 BUN 9 mg/dL (7-18) D 08/28/17 06:00 Creatinine 0.9 mg/dL (0.7-1.3) 08/28/17 06:00 Creat Clearance w eGFR > 60 (>60) 08/28/17 06:00 Random Glucose 124 mg/dL (74-106) H 08/28/17 06:00 Calcium 8.7 mg/dL (8.5-10.1) 08/28/17 06:00 Total Bilirubin 5.2 mg/dL (0.2-1.0) H 08/28/17 06:00 AST 85 U/L (15-37) H 08/28/17 06:00 ALT 129 U/L (12-78) H D 08/28/17 06:00 Alkaline Phosphatase 489 U/L (45-117) H 08/28/17 06:00 Total Protein 6.2 g/dl (6.4-8.2) L 08/28/17 06:00 Albumin 2.4 g/dl (3.4-5.0) L 08/28/17 06:00 CARDIAC ENZYMES Creatine Kinase 67 IU/L (39-308) 08/26/17 10:05 Troponin I < 0.02 ng/ml (0.00-0.05) 08/26/17 10:05 Current Medications Generic Name Dose Route Start Last Admin Trade Name Freq PRN Reason Stop Dose Admin Diphenhydramine HCl 25 mg 08/26/17 16:24 Benadryl - PO Q8H PRN FOR ITCHING Metronidazole 500 mg in 100 mls @ 100 mls/hr 08/26/17 18:00 08/28/17 09:10 Flagyl 500mg Premixed Ivpb - IVPB 100 mls/hr Q8H-IV [facility] Administration Cefazolin Sodium 1 gm in 10 mls @ 100 mls/hr 08/27/17 18:00 08/28/17 10:36 Ancef - IVPUSH 100 mls/hr Q8H-IV [facility] Administration Lactated Ringer's 1,000 ml in 1,000 mls @ 125 mls/hr 08/28/17 12:00 08/28/17 14:09 Lactated Ringers Solution IV 125 mls/hr ASDIR [facility] Administration Morphine Sulfate 2 mg 08/26/17 13:35 Morphine Injection - IVPUSH Q4H PRN PAIN Pantoprazole Sodium 40 mg 08/27/17 17:30 08/28/17 09:10 Protonix - PO 40 mg DAILY [facility] Administration Home Medications Medication Instructions Recorded Omeprazole 20 mg PO DAILY 08/26/17 Ranitidine HCl 150 mg PO BID 08/26/17 Laboratory Tests 08/26/17 08/26/17 08/27/17 10:05 10:05 08:40 WBC 16.8 H Total Bilirubin 5.3 H AST 176 H ALT 254 H Alkaline Phosphatase 709 H C-Reactive Protein KATELYNN Screen Pending c-ANCA Proteinase 3 (PR3) p-ANCA Atypical p-ANCA Myeloperoxidase Ab Smooth Musc &SPECIAL EVENTS ASSISTANT Intrp Liver/Kid Microsomes Ab 08/27/17 08/27/17 08/27/17 08:40 09:49 09:49 WBC 6.9 D Total Bilirubin 6.0 H AST 104 H D ALT 174 H D Alkaline Phosphatase 568 H C-Reactive Protein KATELYNN Screen c-ANCA Pending Proteinase 3 (PR3) Pending p-ANCA Pending Atypical p-ANCA Pending Myeloperoxidase Ab Pending Smooth Musc &SPECIAL EVENTS ASSISTANT Intrp Pending Liver/Kid Microsomes Ab Pending 08/28/17 08/28/17 06:00 06:00 WBC 8.8 Total Bilirubin 5.2 H AST 85 H ALT 129 H D Alkaline Phosphatase 489 H C-Reactive Protein 4.6 H KATELYNN Screen c-ANCA Proteinase 3 (PR3) p-ANCA Atypical p-ANCA Myeloperoxidase Ab Smooth Musc &SPECIAL EVENTS ASSISTANT Intrp Liver/Kid Microsomes Ab PE: Soft abdomen, NT, NR. Rest of PE per resident's note ASSESSMENT AND PLAN: Patient is a 57 y/o gentleman with h/o PUD , and CCY 2002 who presented with acute onset of Abdominal pain and was found to have elevated LFTS with mild dilatation of CBD. # POD#1 s/p ERCP under [facility] for Acute Choledocolithiasis /cholangitis presented with elevated LFTs. s/p ercp w/ sphincterotomy, gallstones extraction, with epi injection. As per GI note; : Had 4 CBD stones and pus extracted. Had bleeding after stone extractions so epinephrine was injected and a stent had to be placed. Findings werer discussed with family. Informed them of the need for repeat ERCP to remove stent in 3-4 months. On IV antibiotic Rocephin/Flagyl. ERCP report as per s/p MRCP with no evidence stones, or tumors. Pending P-ANCA , check AMA , KATELYNN , ANd anti-LK abs # h/o PUD: on PPI continue Dvt px: SCDs , Heparin sq
--- NOTE | 2017-08-28 17:27 | PN ---
Physical Exam: SUBJECTIVE: Patient seen and examined. Offers no complaints. No fever, chills, n/v, abdominal pain. No BM. OBJECTIVE: Vital Signs Period Temp Pulse Resp BP Sys/Gill Pulse Ox Last 24 Hr 98.1 F-99.1 F 52-80 16-25 126-141/58-70 95 GENERAL: lying comfortably in bed, nad, aaox3 EYES: sclera icterus improving, conjunctiva clear ENT: MMM LUNGS: CTAB HEART: rrr, normal s1/s2, no m/r/g ABDOMEN: Soft, ntnd, normoactive BS bowel sounds LOWER EXTREMITIES: 2+ DP pulses, wwp, no edema CBC, BMP 08/28/17 06:00 08/28/17 06:00 Hepatic Panel Total Bilirubin 5.2 mg/dL (0.2-1.0) H 08/28/17 06:00 AST 85 U/L (15-37) H 08/28/17 06:00 ALT 129 U/L (12-78) H D 08/28/17 06:00 Alkaline Phosphatase 489 U/L (45-117) H 08/28/17 06:00 Albumin 2.4 g/dl (3.4-5.0) L 08/28/17 06:00 Microbiology 08/26/17 13:36 Blood - Peripheral Venous Blood Culture - Preliminary NO GROWTH OBTAINED AFTER 48 HOURS, INCUBATION TO CONTINUE FOR 3 DAYS. 08/26/17 13:36 Blood - Peripheral Venous Blood Culture - Preliminary NO GROWTH OBTAINED AFTER 48 HOURS, INCUBATION TO CONTINUE FOR 3 DAYS. 08/26/17 10:03 Urine - Urine Clean Catch Urine Culture - Final NO GROWTH OBTAINED Active Medications Diphenhydramine HCl (Benadryl -) 25 mg PO Q8H PRN PRN Reason: FOR ITCHING Heparin Sodium (Porcine) (Heparin -) 5,000 unit SQ TID [facility] Metronidazole (Flagyl 500mg Premixed Ivpb -) 500 mg in 100 mls @ 100 mls/hr IVPB Q8H-IV [facility] Last Admin: 08/28/17 17:14 Dose: 100 mls/hr Cefazolin Sodium (Ancef -) 1 gm in 10 mls @ 100 mls/hr IVPUSH Q8H-IV [facility] Last Admin: 08/28/17 17:14 Dose: 100 mls/hr Lactated Ringer's (Lactated Ringers Solution) 1,000 ml in 1,000 mls @ 125 mls/ hr IV ASDIR [facility] Last Admin: 08/28/17 14:09 Dose: 125 mls/hr Morphine Sulfate (Morphine Injection -) 2 mg IVPUSH Q4H PRN PRN Reason: PAIN Pantoprazole Sodium (Protonix -) 40 mg PO DAILY [facility] Last Admin: 08/28/17 09:10 Dose: 40 mg ASSESSMENT/PLAN: 57yo man with PMH of PUD and CCY (2002) who presented with acute onset abdominal pain and found to have elevated LFTs and dilated CBD suspicious for cholangitis. #POD1 s/p ERCP with stent and sphincterotomy for choledocholithiasis and cholangitis, 4 CBD stones extracted with pus, WBC and LFTs improving -GI consulted -Continue Cefazolin and flagyl, day 2 -continue LR @ 125cc/hr #h/o PUD - Protonix 40mg daily #FEN: IVF / lytes wnl / Clears, advance per GI #PPX -DVT - hold A/C 48h post ERCP, SCD's -GI - on PPI #DISPO: continue m/s, anticipate d/c within 24-48hours FULL code d/w Dr. Salvador Ruth MD PGY1 - Internal Medicine Visit type - Emergency Visit Emergency Visit: No - New Patient This patient is new to me today: No - Critical Care Critical Care patient: No
[2017-08-28] MEDS: HEPARIN NA (PORCINE) 5,000 UNITS/ML 1ML VIAL SQ SCH (22:00)
[2017-08-29] MEDS: METRONIDAZOLE 500 MG PREMIXED 500 MG/100 ML MG IVPB SCH ×3 (01:30→17:50)
[2017-08-29] MEDS: CEFAZOLIN 1 GM PUSH 1 GM/10 ML DISP.SYRIN IVPUSH SCH ×3 (02:13→17:50)
[2017-08-29] MEDS: HEPARIN NA (PORCINE) 5,000 UNITS/ML 1ML VIAL SQ SCH ×2 (05:33→17:49)
[2017-08-29 07:42] LABS: BASO % 0.3 % (0-2.0); EOS % 0.9 % (0-4.5); HEMATOCRIT 36.4 % (35.4-49); HEMOGLOBIN 12.2 GM/dL (11.7-16.9); LYMPH % 30.9 % (8-40); MCH 32.2 pg (25.7-33.7); MCHC 33.6 g/dl (32.0-35.9); MEAN CELL VOLUME 95.9 fl (80-96); MEAN PLT VOLUME 10.7 fl (7.5-11.1); NEUT % 57.9 % (42.8-82.8); PLATELET COUNT 257 K/MM3 (134-434); WHITE BLOOD COUNT 8.6 K/mm3 (4.0-10.0)
[2017-08-29 08:04] LABS: ALBUMIN 2.7 g/dl (3.4-5.0); ANION GAP 10 (8-16); BLOOD UREA NITROGEN 7 mg/dL (7-18); CHLORIDE 104 mmol/L (98-107); CO2 28 mmol/L (21-32); GLUCOSE,RANDOM 110 mg/dL (74-106); POTASSIUM 3.7 mmol/L (3.5-5.1); SODIUM 142 mmol/L (136-145)
[2017-08-29 08:08] LABS: ALK PHOS 519 U/L (45-117); BILIRUBIN,DIRECT 4.6 mg/dL (0.0-0.2); BILIRUBIN,TOTAL 5.6 mg/dL (0.2-1.0); CREATININE 0.8 mg/dL (0.7-1.3); SGOT/AST 84 U/L (15-37); SGPT/ALT 109 U/L (12-78); TOT PROT 6.6 g/dl (6.4-8.2)
[2017-08-29] MEDS: PANTOPRAZOLE 40 MG TABLET (FP) PO SCH (10:10)
[2017-08-29] MEDS: ONDANSETRON 4 MG TABLET PO PRN (10:41)
[2017-08-29] MEDS: ONDANSETRON 4 MG/2 ML VIAL IVPB PRN (11:04)
--- NOTE | 2017-08-29 11:52 | PN ---
Progress Note, Physician History of Present Illness: Nausea and vomiting, mild epigastric discomfort. Has some clears earlier in am. No pain. Liver enzymes, bili, ALP are going up this am - Current Medication List Current Medications: Active Medications Diphenhydramine HCl (Benadryl -) 25 mg PO Q8H PRN PRN Reason: FOR ITCHING Last Admin: 08/28/17 23:14 Dose: 25 mg Heparin Sodium (Porcine) (Heparin -) 5,000 unit SQ TID [facility] Last Admin: 08/29/17 05:33 Dose: 5,000 unit Metronidazole (Flagyl 500mg Premixed Ivpb -) 500 mg in 100 mls @ 100 mls/hr IVPB Q8H-IV [facility] Last Admin: 08/29/17 10:10 Dose: 100 mls/hr Cefazolin Sodium (Ancef -) 1 gm in 10 mls @ 100 mls/hr IVPUSH Q8H-IV [facility] Last Admin: 08/29/17 10:10 Dose: 100 mls/hr Lactated Ringer's (Lactated Ringers Solution) 1,000 ml in 1,000 mls @ 125 mls/ hr IV ASDIR [facility] Last Admin: 08/28/17 23:40 Dose: 125 mls/hr Morphine Sulfate (Morphine Injection -) 2 mg IVPUSH Q4H PRN PRN Reason: PAIN Ondansetron HCl (Zofran Injection) 8 mg IVPB Q6H PRN PRN Reason: NAUSEA Last Admin: 08/29/17 11:04 Dose: 8 mg Pantoprazole Sodium (Protonix -) 40 mg PO DAILY [facility] Last Admin: 08/29/17 10:10 Dose: 40 mg - Objective Vital Signs: Vital Signs Temperature 99.2 F 08/29/17 06:00 Pulse Rate 52 L 08/29/17 06:00 Respiratory Rate 20 08/29/17 06:00 Blood Pressure 128/53 08/29/17 06:00 O2 Sat by Pulse Oximetry (%) 95 08/28/17 09:00 Constitutional: Yes: Mild Distress Eyes: Yes: Conjunctiva Clear Gastrointestinal: Yes: Soft, Tenderness, Epigastrium, Vomiting. No: Abdomen, Obese, Ascites, Distention, Melena, Rectal Bleeding, Tenderness, Rebound Neurological: Yes: Alert, Oriented Labs: CBC, BMP 08/29/17 06:00 08/29/17 06:00 INR, PTT INR 1.11 (0.82-1.09) 08/28/17 06:00 Abnormal Lab Results 08/27/17 08/29/17 08/29/17 08:40 06:00 06:00 RBC 3.80 L Random Glucose 110 H Total Bilirubin 5.6 H Direct Bilirubin 4.6 H AST 84 H ALT 109 H Alkaline Phosphatase 519 H Albumin 2.7 L Smooth Musc &INSTALLATION COORDINATOR Intrp 28 H Problem List - Problems (1) Cholestasis Code(s): K83.1 - OBSTRUCTION OF BILE DUCT (2) Biliary colic Code(s): K80.50 - CALCULUS OF BILE DUCT W/O CHOLANGITIS OR CHOLECYST W/O OBST (3) Obstructive jaundice Code(s): K83.8 - OTHER SPECIFIED DISEASES OF BILIARY TRACT Assessment/Plan Choledocolithiasis, cholangitis. S/p ercp w/ sphincterotomy, gallstones extraction, epi injection. nausea, vomiting with worseing labs. ?obstructed again? vidafran liver chem, bili, ALP, lipase, CBC this PM NPO May need repeat ERCP.
--- NOTE | 2017-08-29 12:17 | PN ---
Physical Exam: SUBJECTIVE: Patient seen and examined. NBNB emesis overnight after family brought in Regular food last night. Tolerated Clears this morning, but C/o nausea and mild epigastric pain this morning. No fever or chills. No BM for several days. OBJECTIVE: Vital Signs Period Temp Pulse Resp BP Sys/Gill Pulse Ox Last 24 Hr 98.1 F-99.2 F 50-59 16-20 126-176/53-84 GENERAL: mild distress, aaox3 EYES: conjunctiva clear ENT: MMM LUNGS: CTAB HEART: rrr, normal s1/s2, no m/r/g ABDOMEN: Soft, non-distended, mild epigastric ttp, hyperactive BS LOWER EXTREMITIES: 2+ DP pulses, wwp, no edema CBC, BMP 08/29/17 06:00 08/29/17 06:00 Hepatic Panel Total Bilirubin 5.6 mg/dL (0.2-1.0) H 08/29/17 06:00 Direct Bilirubin 4.6 mg/dL (0.0-0.2) H 08/29/17 06:00 AST 84 U/L (15-37) H 08/29/17 06:00 ALT 109 U/L (12-78) H 08/29/17 06:00 Alkaline Phosphatase 519 U/L (45-117) H 08/29/17 06:00 Albumin 2.7 g/dl (3.4-5.0) L 08/29/17 06:00 Active Medications Diphenhydramine HCl (Benadryl -) 25 mg PO Q8H PRN PRN Reason: FOR ITCHING Last Admin: 08/28/17 23:14 Dose: 25 mg Heparin Sodium (Porcine) (Heparin -) 5,000 unit SQ TID [facility] Last Admin: 08/29/17 05:33 Dose: 5,000 unit Metronidazole (Flagyl 500mg Premixed Ivpb -) 500 mg in 100 mls @ 100 mls/hr IVPB Q8H-IV [facility] Last Admin: 08/29/17 10:10 Dose: 100 mls/hr Cefazolin Sodium (Ancef -) 1 gm in 10 mls @ 100 mls/hr IVPUSH Q8H-IV [facility] Last Admin: 08/29/17 10:10 Dose: 100 mls/hr Lactated Ringer's (Lactated Ringers Solution) 1,000 ml in 1,000 mls @ 100 mls/ hr IV ASDIR [facility] Morphine Sulfate (Morphine Injection -) 2 mg IVPUSH Q4H PRN PRN Reason: PAIN Ondansetron HCl (Zofran Injection) 8 mg IVPB Q6H PRN PRN Reason: NAUSEA Last Admin: 08/29/17 11:04 Dose: 8 mg Pantoprazole Sodium (Protonix -) 40 mg PO DAILY [facility] Last Admin: 08/29/17 10:10 Dose: 40 mg ASSESSMENT/PLAN: 57yo man with PMH of PUD and CCY (2002) who presented with acute onset abdominal pain and found to have elevated LFTs and ERCP finding choledocholithiasis and cholangitis. #POD2 s/p ERCP w/ stent and sphincterotomy for choledocholithiasis and cholangitis, 4 CBD stones extracted with pus, +smooth muscle Ab (?autoimmune hepatitis) -LFTs worse today, re-obstructed? will repeat in evening -GI consulted. Placed back to NPO -Continue Cefazolin and flagyl, day 3 -LR @ 100cc/hr #h/o PUD - Protonix 40mg daily #FEN: IVF / lytes wnl / NPO #PPX -DVT - hold A/C 48h post ERCP, SCD's -GI - on PPI #DISPO: continue m/s FULL code d/w Dr. Salvador Ruth MD PGY1 - Internal Medicine Visit type - Emergency Visit Emergency Visit: No - New Patient This patient is new to me today: No - Critical Care Critical Care patient: No
[2017-08-29] MEDS: LACTATED RINGERS SOLUTION 1,000 ML/1,000 ML INFUS.BAG IV SCH (13:23)
[2017-08-29 14:01] LABS: BASO % 2.2 % (0-2.0); EOS % 0.7 % (0-4.5); HEMATOCRIT 36.4 % (35.4-49); HEMOGLOBIN 12.3 GM/dL (11.7-16.9); LYMPH % 22.1 % (8-40); MCH 32.4 pg (25.7-33.7); MCHC 33.7 g/dl (32.0-35.9); MEAN CELL VOLUME 96.4 fl (80-96); MEAN PLT VOLUME 10.5 fl (7.5-11.1); MONO % 8.7 % (3.8-10.2); NEUT % 66.3 % (42.8-82.8); PLATELET COUNT 246 K/MM3 (134-434); RBC 3.78 M/mm3 (4.00-5.60); RDW 15.3 % (11.9-15.9); WHITE BLOOD COUNT 7.8 K/mm3 (4.0-10.0)
[2017-08-29 14:29] LABS: ALBUMIN 2.8 g/dl (3.4-5.0); BILIRUBIN,DIRECT 4.6 mg/dL (0.0-0.2); BILIRUBIN,TOTAL 5.5 mg/dL (0.2-1.0)
--- NOTE | 2017-08-29 14:44 | PN ---
Progress Note (short form) - Note Progress Note: GI NOte: Notified by Dr Phillip of rising LFTs. FUA to check whether stent has migrated. Will also try to get MRCP to help determine whether or not repeat ERCP is necessary. Will also need to exclude a hepatocellular process. Problem List - Problems (1) Biliary colic Code(s): K80.50 - CALCULUS OF BILE DUCT W/O CHOLANGITIS OR CHOLECYST W/O OBST (2) Obstructive jaundice Code(s): K83.8 - OTHER SPECIFIED DISEASES OF BILIARY TRACT (3) History of peptic ulcer Code(s): Z87.11 - PERSONAL HISTORY OF PEPTIC ULCER DISEASE (4) History of laparoscopic cholecystectomy Code(s): Z98.890 - OTHER SPECIFIED POSTPROCEDURAL STATES; Z90.49 - ACQUIRED ABSENCE OF OTHER SPECIFIED PARTS OF DIGESTIVE TRACT
[2017-08-29] MEDS ORDERED: PT OWN MED DRAWER 7, Y5N ONE (17:02)
--- NOTE | 2017-08-29 20:19 | PN ---
Teaching Attending Note Name of Resident: Linad Ruth ATTENDING PHYSICIAN STATEMENT I saw and evaluated the patient. I reviewed the resident's note and discussed the case with the resident. I agree with the resident's findings and plan as documented. SUBJECTIVE: PATIENT IS C/O HAVING ABDOMINAL PAIN. no chills, mild abdominal pain. OBJECTIVE: Vital Signs Temperature 98.0 F 08/29/17 19:29 Pulse Rate 82 08/29/17 19:29 Respiratory Rate 18 08/29/17 19:29 Blood Pressure 124/78 08/29/17 19:29 O2 Sat by Pulse Oximetry (%) 100 08/29/17 09:00 CBCD WBC 7.8 K/mm3 (4.0-10.0) 08/29/17 13:48 RBC 3.78 M/mm3 (4.00-5.60) L 08/29/17 13:48 Hgb 12.3 GM/dL (11.7-16.9) 08/29/17 13:48 Hct 36.4 % (35.4-49) 08/29/17 13:48 MCV 96.4 fl (80-96) H 08/29/17 13:48 MCHC 33.7 g/dl (32.0-35.9) 08/29/17 13:48 RDW 15.3 % (11.9-15.9) 08/29/17 13:48 Plt Count 246 K/MM3 (134-434) 08/29/17 13:48 MPV 10.5 fl (7.5-11.1) 08/29/17 13:48 CMP Sodium 142 mmol/L (136-145) 08/29/17 06:00 Potassium 3.7 mmol/L (3.5-5.1) 08/29/17 06:00 Chloride 104 mmol/L (98-107) 08/29/17 06:00 Carbon Dioxide 28 mmol/L (21-32) 08/29/17 06:00 Anion Gap 10 (8-16) 08/29/17 06:00 BUN 7 mg/dL (7-18) D 08/29/17 06:00 Creatinine 0.8 mg/dL (0.7-1.3) 08/29/17 06:00 Creat Clearance w eGFR > 60 (>60) 08/29/17 06:00 Random Glucose 110 mg/dL (74-106) H 08/29/17 06:00 Calcium 9.0 mg/dL (8.5-10.1) 08/29/17 06:00 Total Bilirubin 5.5 mg/dL (0.2-1.0) H 08/29/17 13:48 AST 87 U/L (15-37) H 08/29/17 13:48 ALT 110 U/L (12-78) H 08/29/17 13:48 Alkaline Phosphatase 527 U/L (45-117) H 08/29/17 13:48 Total Protein 7.0 g/dl (6.4-8.2) 08/29/17 13:48 Albumin 2.8 g/dl (3.4-5.0) L 08/29/17 13:48 CARDIAC ENZYMES Creatine Kinase 67 IU/L (39-308) 08/26/17 10:05 Troponin I < 0.02 ng/ml (0.00-0.05) 08/26/17 10:05 Current Medications Generic Name Dose Route Start Last Admin Trade Name Freq PRN Reason Stop Dose Admin Diphenhydramine HCl 25 mg 08/26/17 16:24 08/28/17 23:14 Benadryl - PO 25 mg Q8H PRN Administration FOR ITCHING Heparin Sodium (Porcine) 5,000 unit 08/28/17 22:00 08/29/17 17:49 Heparin - SQ Not Given TID STACEY Metronidazole 500 mg in 100 mls @ 100 mls/hr 08/26/17 18:00 08/29/17 17:50 Flagyl 500mg Premixed Ivpb - IVPB 100 mls/hr Q8H-IV STACEY Administration Cefazolin Sodium 1 gm in 10 mls @ 100 mls/hr 08/27/17 18:00 08/29/17 17:50 Ancef - IVPUSH 100 mls/hr Q8H-IV STACEY Administration Lactated Ringer's 1,000 ml in 1,000 mls @ 100 mls/hr 08/29/17 11:58 08/29/17 13:23 Lactated Ringers Solution IV 100 mls/hr ASDIR STACEY Administration Morphine Sulfate 2 mg 08/26/17 13:35 Morphine Injection - IVPUSH Q4H PRN PAIN Ondansetron HCl 8 mg 08/29/17 10:47 08/29/17 11:04 Zofran Injection IVPB 8 mg Q6H PRN Administration NAUSEA Pantoprazole Sodium 40 mg 08/27/17 17:30 08/29/17 10:10 Protonix - PO 40 mg DAILY STACEY Administration Home Medications Medication Instructions Recorded Omeprazole 20 mg PO DAILY 08/26/17 Ranitidine HCl 150 mg PO BID 08/26/17 PE: Soft abdomen, mild tenderness Rest of PE per resident's note ASSESSMENT AND PLAN: Patient is a 57 y/o gentleman with h/o PUD , and CCY 2002 who presented with acute onset of Abdominal pain and was found to have elevated LFTS with mild dilatation of CBD. # POD#2 s/p ERCP under [facility] for Acute Choledocolithiasis /cholangitis presented with elevated LFTs. s/p ercp w/ sphincterotomy, gallstones extraction, with epi injection. As per GI note; : Had 4 CBD stones and pus extracted. Had bleeding after stone extractions so epinephrine was injected and a stent had to be placed. Findings werer discussed with family. Informed them of the need for repeat ERCP to remove stent in 3-4 months. On IV antibiotic Rocephin/Flagyl. ERCP report as per .s/p MRCP with no evidence stones, or tumors. Pending P-ANCA , check AMA , KATELYNN , ANd anti-LK abs Patient has elevated LFts today. is going for MRCp if needed will have ERCP as per GI, NPO for now, hold AC continue I antibiotic cefazolin and Flagyl, continue IvF. # h/o PUD: on PPI continue Dvt px: SCDs , Heparin sq GI px: PPI
[2017-08-30 00:06] LABS: ATYPICAL pANCA <1:20 titer (Neg:<1:20); C-ANCA <1:20 titer (Neg:<1:20); P-ANCA <1:20 titer (Neg:<1:20); PROTEINASE-3 ANTIBODY <3.5 U/mL (0.0-3.5)
[2017-08-30] MEDS: CEFAZOLIN 1 GM PUSH 1 GM/10 ML DISP.SYRIN IVPUSH SCH ×3 (01:10→14:18)
[2017-08-30] MEDS ORDERED: PT OWN MED DRAWER 7, Y5N ONE ×3 (01:23→10:54)
[2017-08-30] MEDS: LACTATED RINGERS SOLUTION 1,000 ML/1,000 ML INFUS.BAG IV SCH ×2 (01:31→12:31)
[2017-08-30] MEDS: METRONIDAZOLE 500 MG PREMIXED 500 MG/100 ML MG IVPB SCH ×3 (01:32→14:18)
[2017-08-30] MEDS: ONDANSETRON 4 MG/2 ML VIAL IVPB PRN ×2 (02:02→15:38)
[2017-08-30 08:24] LABS: INR 1.14 (0.82-1.09); PROTHROMBIN TIME (PATIENT) 12.9 SEC (9.98-11.88)
[2017-08-30 08:41] LABS: HEMATOCRIT 37.6 % (35.4-49); HEMOGLOBIN 12.4 GM/dL (11.7-16.9); MCH 31.9 pg (25.7-33.7); MCHC 32.9 g/dl (32.0-35.9); MEAN CELL VOLUME 96.8 fl (80-96); MEAN PLT VOLUME 10.5 fl (7.5-11.1); PLATELET COUNT 275 K/MM3 (134-434); RBC 3.89 M/mm3 (4.00-5.60); RDW 15.5 % (11.9-15.9); WHITE BLOOD COUNT 8.1 K/mm3 (4.0-10.0)
[2017-08-30 09:02] LABS: CHLORIDE 103 mmol/L (98-107); POTASSIUM 3.7 mmol/L (3.5-5.1); SODIUM 142 mmol/L (136-145)
[2017-08-30 09:34] LABS: ALBUMIN 2.7 g/dl (3.4-5.0); ALK PHOS 506 U/L (45-117); ANION GAP 13 (8-16); BILIRUBIN,TOTAL 5.5 mg/dL (0.2-1.0); BLOOD UREA NITROGEN 8 mg/dL (7-18); CALCIUM 8.9 mg/dL (8.5-10.1); CO2 26 mmol/L (21-32); CREATININE 0.8 mg/dL (0.7-1.3); GLUCOSE,RANDOM 92 mg/dL (74-106); SGOT/AST 83 U/L (15-37); SGPT/ALT 93 U/L (12-78)
--- NOTE | 2017-08-30 09:59 | PN ---
Teaching Attending Note Name of Resident: Linda Ruth ATTENDING PHYSICIAN STATEMENT I saw and evaluated the patient. I reviewed the resident's note and discussed the case with the resident. I agree with the resident's findings and plan as documented. SUBJECTIVE: Patient continues to be nauseas, not tolerating diet, Family at bedside. OBJECTIVE: Vital Signs Temperature 98.4 F 08/30/17 06:00 Pulse Rate 67 08/30/17 06:00 Respiratory Rate 20 08/30/17 06:00 Blood Pressure 147/75 08/30/17 06:00 O2 Sat by Pulse Oximetry (%) 100 08/29/17 21:00 CBCD WBC 8.1 K/mm3 (4.0-10.0) 08/30/17 06:00 RBC 3.89 M/mm3 (4.00-5.60) L 08/30/17 06:00 Hgb 12.4 GM/dL (11.7-16.9) 08/30/17 06:00 Hct 37.6 % (35.4-49) 08/30/17 06:00 MCV 96.8 fl (80-96) H 08/30/17 06:00 MCHC 32.9 g/dl (32.0-35.9) 08/30/17 06:00 RDW 15.5 % (11.9-15.9) 08/30/17 06:00 Plt Count 275 K/MM3 (134-434) 08/30/17 06:00 MPV 10.5 fl (7.5-11.1) 08/30/17 06:00 CMP Sodium 142 mmol/L (136-145) 08/30/17 06:00 Potassium 3.7 mmol/L (3.5-5.1) 08/30/17 06:00 Chloride 103 mmol/L (98-107) 08/30/17 06:00 Carbon Dioxide 26 mmol/L (21-32) 08/30/17 06:00 Anion Gap 13 (8-16) 08/30/17 06:00 BUN 8 mg/dL (7-18) 08/30/17 06:00 Creatinine 0.8 mg/dL (0.7-1.3) 08/30/17 06:00 Creat Clearance w eGFR > 60 (>60) 08/30/17 06:00 Random Glucose 92 mg/dL (74-106) 08/30/17 06:00 Calcium 8.9 mg/dL (8.5-10.1) 08/30/17 06:00 Total Bilirubin 5.5 mg/dL (0.2-1.0) H 08/30/17 06:00 AST 83 U/L (15-37) H 08/30/17 06:00 ALT 93 U/L (12-78) H 08/30/17 06:00 Alkaline Phosphatase 506 U/L (45-117) H 08/30/17 06:00 Total Protein 7.0 g/dl (6.4-8.2) 08/30/17 06:00 Albumin 2.7 g/dl (3.4-5.0) L 08/30/17 06:00 CARDIAC ENZYMES Creatine Kinase 67 IU/L (39-308) 08/26/17 10:05 Troponin I < 0.02 ng/ml (0.00-0.05) 08/26/17 10:05 Current Medications Generic Name Dose Route Start Last Admin Trade Name Freq PRN Reason Stop Dose Admin Diphenhydramine HCl 25 mg 08/26/17 16:24 08/28/17 23:14 Benadryl - PO 25 mg Q8H PRN Administration FOR ITCHING Metronidazole 500 mg in 100 mls @ 100 mls/hr 08/26/17 18:00 08/30/17 01:32 Flagyl 500mg Premixed Ivpb - IVPB 100 mls/hr Q8H-IV STACEY Administration Cefazolin Sodium 1 gm in 10 mls @ 100 mls/hr 08/27/17 18:00 08/30/17 01:10 Ancef - IVPUSH 100 mls/hr Q8H-IV STACEY Administration Lactated Ringer's 1,000 ml in 1,000 mls @ 100 mls/hr 08/29/17 11:58 08/30/17 01:31 Lactated Ringers Solution IV 100 mls/hr ASDIR STACEY Administration Morphine Sulfate 2 mg 08/26/17 13:35 Morphine Injection - IVPUSH Q4H PRN PAIN Ondansetron HCl 8 mg 08/29/17 10:47 08/30/17 02:02 Zofran Injection IVPB 8 mg Q6H PRN Administration NAUSEA Pantoprazole Sodium 40 mg 08/27/17 17:30 08/29/17 10:10 Protonix - PO 40 mg DAILY STACEY Administration Home Medications Medication Instructions Recorded Omeprazole 20 mg PO DAILY 08/26/17 Ranitidine HCl 150 mg PO BID 08/26/17 PE: Soft abdomen, mild tenderness Rest of PE per resident's note ASSESSMENT AND PLAN: Patient is a 57 y/o gentleman with h/o PUD , and CCY 2002 who presented with acute onset of Abdominal pain and was found to have elevated LFTS with mild dilatation of CBD. # POD#3 s/p ERCP under [facility] for Acute Choledocolithiasis /cholangitis presented with elevated LFTs. s/p ercp w/ sphincterotomy, gallstones extraction, with epi injection. As per GI note; : Had 4 CBD stones and pus extracted. Had bleeding after stone extractions so epinephrine was injected and a stent had to be placed. Findings werer discussed with family. Informed them of the need for repeat ERCP to remove stent in 3-4 months. s/p IV antibiotic Rocephin/Flagyl , will discontinue the Antibiotic today . ERCP report as per .s/p MRCP with no evidence stones, or tumors. Pending P-ANCA , check AMA , KATELYNN , ANd anti-LK abs Patient's LFTs are improving .Patient went for MRCp and as per patient does not need ERCP at this time, HIDA scan was done as well. # h/o PUD: on PPI continue Dvt px: SCDs , Heparin sq GI px: PPI
--- NOTE | 2017-08-30 10:44 | PN ---
Progress Note (short form) - Note Progress Note: GI NOte: Discussed MRCP with Dr León He informs me that there has been decompression of the biliary tract since the ERCP but he cannot confirm that the stent is in place by either the MRCP or the FUA. He advises a CT in addition to the pending Hida. I await the results to determine whether or not to proceed with ERCP. Problem List - Problems (1) Biliary colic Code(s): K80.50 - CALCULUS OF BILE DUCT W/O CHOLANGITIS OR CHOLECYST W/O OBST (2) Obstructive jaundice Code(s): K83.8 - OTHER SPECIFIED DISEASES OF BILIARY TRACT (3) History of peptic ulcer Code(s): Z87.11 - PERSONAL HISTORY OF PEPTIC ULCER DISEASE (4) History of laparoscopic cholecystectomy Code(s): Z98.890 - OTHER SPECIFIED POSTPROCEDURAL STATES; Z90.49 - ACQUIRED ABSENCE OF OTHER SPECIFIED PARTS OF DIGESTIVE TRACT
[2017-08-30] MEDS: PANTOPRAZOLE 40 MG TABLET (FP) PO SCH (12:31)
--- NOTE | 2017-08-30 14:35 | PN ---
Progress Note (short form) - Note Progress Note: GI NOte ( working in conjunction with Dr Phillip) : Mr. Rodrigues continues to experience nausea and has persistent jaundice. MRCP and CT reveal that the bile ducts have been decompressed and that the stent in in a good position. I reviewed these studies with Dr. León. The Hida scan reveals delayed emptying but the isotope does pass into the small bowel. He does not feel that Liv has obstructive jaundice. I have discussed the case with Dr Phillip and advised evaluation for hepatocellular disease. I explained the situation in detail to Liv and his multiple family members at the bedside. ERCP was cancelled. Problem List - Problems (1) Biliary colic Code(s): K80.50 - CALCULUS OF BILE DUCT W/O CHOLANGITIS OR CHOLECYST W/O OBST (2) Obstructive jaundice Code(s): K83.8 - OTHER SPECIFIED DISEASES OF BILIARY TRACT (3) History of peptic ulcer Code(s): Z87.11 - PERSONAL HISTORY OF PEPTIC ULCER DISEASE (4) History of laparoscopic cholecystectomy Code(s): Z98.890 - OTHER SPECIFIED POSTPROCEDURAL STATES; Z90.49 - ACQUIRED ABSENCE OF OTHER SPECIFIED PARTS OF DIGESTIVE TRACT
[2017-08-30] MEDS: METOCLOPRAMIDE HCL INJECTION 10 MG/2 ML VIAL IVPUSH SCH ×2 (15:04→21:01)
[2017-08-30 15:58] LABS: BASO % 1.5 % (0-2.0); EOS % 0.6 % (0-4.5); HEMATOCRIT 37.2 % (35.4-49); HEMOGLOBIN 12.7 GM/dL (11.7-16.9); LYMPH % 24.8 % (8-40); MCH 32.6 pg (25.7-33.7); MCHC 34.1 g/dl (32.0-35.9); MEAN CELL VOLUME 95.6 fl (80-96); MEAN PLT VOLUME 10.7 fl (7.5-11.1); MONO % 8.1 % (3.8-10.2); PLATELET COUNT 294 K/MM3 (134-434); RBC 3.89 M/mm3 (4.00-5.60); RDW 14.9 % (11.9-15.9); WHITE BLOOD COUNT 7.8 K/mm3 (4.0-10.0)
[2017-08-30 16:28] LABS: ALBUMIN 2.8 g/dl (3.4-5.0); BILIRUBIN,TOTAL 5.5 mg/dL (0.2-1.0); TOT PROT 7.1 g/dl (6.4-8.2)
[2017-08-30 16:31] LABS: BILIRUBIN,DIRECT 4.6 mg/dL (0.0-0.2)
--- NOTE | 2017-08-30 19:02 | PN ---
Physical Exam: SUBJECTIVE: Patient seen and examined. Had an episode of bilious emesis overnight. Continues to have nausea and some abdominal discomfort. No fever, chills, chest pain. OBJECTIVE: Vital Signs Period Temp Pulse Resp BP Sys/Gill Pulse Ox Last 24 Hr 98 F-98.4 F 56-82 16-20 124-147/62-78 97-100 GENERAL: nad, aaox3 EYES: conjunctiva clear, scleral icterus ENT: MMM LUNGS: CTAB HEART: rrr, normal s1/s2, no m/r/g ABDOMEN: Soft, non-distended, mild epigastric ttp, hyperactive BS LOWER EXTREMITIES: 2+ DP pulses, wwp, no edema CBC, BMP 08/30/17 15:05 08/30/17 06:00 Hepatic Panel Total Bilirubin 5.5 mg/dL (0.2-1.0) H 08/30/17 15:05 Direct Bilirubin 4.6 mg/dL (0.0-0.2) H 08/30/17 15:05 AST 85 U/L (15-37) H 08/30/17 15:05 ALT 93 U/L (12-78) H 08/30/17 15:05 Alkaline Phosphatase 528 U/L (45-117) H 08/30/17 15:05 Albumin 2.8 g/dl (3.4-5.0) L 08/30/17 15:05 IMAGING: CT Abdomen w/o contrast (08/30): CBD stent spanning proximal common hepatic duct to duodenum w/ biliary tree decompression HIDA (08/30): delayed excretion, biliary enteric transit and significant liver retention of tracer after 2hours of imaging --> Findings exclude complete CBD obstruction. DDX include hepatocellular disease and partial CBD obstruction. The findings on the CT scan and MRCP demonstrating adequate positioning of the biliary stent and interval decompression of the biliary ductal dilatation favors hepatocellular disease rather than CBD obstruction. Continued clinical follow-up and follow-up of LFTs and bilirubin level is needed. Active Medications Diphenhydramine HCl (Benadryl -) 25 mg PO Q8H PRN PRN Reason: FOR ITCHING Last Admin: 08/28/17 23:14 Dose: 25 mg Heparin Sodium (Porcine) (Heparin -) 5,000 unit SQ TID STACEY Lactated Ringer's (Lactated Ringers Solution) 1,000 ml in 1,000 mls @ 100 mls/ hr IV ASDIR [facility] Last Admin: 08/30/17 12:31 Dose: Not Given Metoclopramide HCl (Reglan Injection -) 10 mg IVPUSH Q6H-IV STACEY Last Admin: 08/30/17 15:04 Dose: 10 mg Ondansetron HCl (Zofran Injection) 8 mg IVPB Q6H PRN PRN Reason: NAUSEA Last Admin: 08/30/17 15:38 Dose: 8 mg Pantoprazole Sodium (Protonix Iv) 40 mg IVPUSH BID [facility] ASSESSMENT/PLAN: 57yo man with PMH of PUD and CCY (2002) who presented with acute onset abdominal pain and found to have elevated LFTs and ERCP findings c/w choledocholithiasis and cholangitis. #nausea, jaundice - etiology unclear, r/o hepatocellular disease, anti-Smooth muscle Ab+ (?autoimmune hepatitis) Unlikely obstructive jaundice; MRCP, HIDA, and CT Abd revealed bile decompression and patent stent -GI following -Liver biopsy on Saturday -f/u hepatitis panel, AFP, CA 19-9, Hgb A1c -Continue IVFs -Metoclopramide IV for nausea -Advance diet to Clears as tolerated #POD3 s/p ERCP w/ stent and sphincterotomy for choledocholithiasis/cholangitis, 4 CBD stones extracted with pus No signs of infection, no leukocytosis, afebrile will d/c Cefazolin and flagyl ( received 4 days total) -Monitor for signs of pancreatitis, lipase, LFTs #h/o PUD - Protonix 40mg IV BID #FEN: IVF / lytes wnl / Clear liquid, advance as tolerated #PPX -DVT - resume heparin tid -GI - on PPI #DISPO: continue m/s FULL code d/w Dr. Salvador Ruth MD PGY1 - Internal Medicine Visit type - Emergency Visit Emergency Visit: No - New Patient This patient is new to me today: No - Critical Care Critical Care patient: No
[2017-08-30] MEDS: PANTOPRAZOLE SODIUM 40 MG VIAL IVPUSH SCH (21:02)
[2017-08-30] MEDS: HEPARIN NA (PORCINE) 5,000 UNITS/ML 1ML VIAL SQ SCH (21:02)
[2017-08-31] MEDS: METOCLOPRAMIDE HCL INJECTION 10 MG/2 ML VIAL IVPUSH SCH ×2 (02:29→10:53)
[2017-08-31] MEDS: HEPARIN NA (PORCINE) 5,000 UNITS/ML 1ML VIAL SQ SCH ×3 (06:21→22:00)
[2017-08-31 08:07] LABS: SERUM IRON SATURATION 51 % (15-55); TOTAL IRON BINDING CAPACITY 251 ug/dL (250-450); UIBC 122 ug/dL (111-343)
[2017-08-31] MEDS: PANTOPRAZOLE SODIUM 40 MG VIAL IVPUSH SCH ×2 (10:52→21:53)
[2017-08-31 14:10] LABS: HBSAG SCREEN Negative (Negative); HEP A AB, IGM Negative (Negative); HEP B CORE AB, TOT Positive (Negative)
[2017-08-31] MEDS: LACTATED RINGERS SOLUTION 1,000 ML/1,000 ML INFUS.BAG IV SCH (14:19)
--- NOTE | 2017-08-31 14:49 | PN ---
Progress Note (short form) - Note Progress Note: Patient is feeling better, tolerating diet. Vital Signs Temperature 98.4 F 08/31/17 09:00 Pulse Rate 58 L 08/31/17 09:00 Respiratory Rate 18 08/31/17 09:00 Blood Pressure 153/73 08/31/17 09:00 O2 Sat by Pulse Oximetry (%) 97 08/30/17 21:00 GENERAL: NAD, AAOx3 EYES: conjunctiva clear, scleral icterus ENT: MMM LUNGS: CTAB HEART: RRR, S1S2 positive, ABDOMEN: Soft, diffuse mild tenderness, ND,NR. positive for BS. EXTRIMITIES: pulses are positive, no edema CBCD WBC 7.8 K/mm3 (4.0-10.0) 08/30/17 15:05 RBC 3.89 M/mm3 (4.00-5.60) L 08/30/17 15:05 Hgb 12.7 GM/dL (11.7-16.9) 08/30/17 15:05 Hct 37.2 % (35.4-49) 08/30/17 15:05 MCV 95.6 fl (80-96) 08/30/17 15:05 MCHC 34.1 g/dl (32.0-35.9) 08/30/17 15:05 RDW 14.9 % (11.9-15.9) 08/30/17 15:05 Plt Count 294 K/MM3 (134-434) 08/30/17 15:05 MPV 10.7 fl (7.5-11.1) 08/30/17 15:05 CMP Sodium 142 mmol/L (136-145) 08/30/17 06:00 Potassium 3.7 mmol/L (3.5-5.1) 08/30/17 06:00 Chloride 103 mmol/L (98-107) 08/30/17 06:00 Carbon Dioxide 26 mmol/L (21-32) 08/30/17 06:00 Anion Gap 13 (8-16) 08/30/17 06:00 BUN 8 mg/dL (7-18) 08/30/17 06:00 Creatinine 0.8 mg/dL (0.7-1.3) 08/30/17 06:00 Creat Clearance w eGFR > 60 (>60) 08/30/17 06:00 Random Glucose 92 mg/dL (74-106) 08/30/17 06:00 Calcium 8.9 mg/dL (8.5-10.1) 08/30/17 06:00 Total Bilirubin 5.5 mg/dL (0.2-1.0) H 08/30/17 15:05 AST 85 U/L (15-37) H 08/30/17 15:05 ALT 93 U/L (12-78) H 08/30/17 15:05 Alkaline Phosphatase 528 U/L (45-117) H 08/30/17 15:05 Total Protein 7.1 g/dl (6.4-8.2) 08/30/17 15:05 Albumin 2.8 g/dl (3.4-5.0) L 08/30/17 15:05 CARDIAC ENZYMES Creatine Kinase 67 IU/L (39-308) 08/26/17 10:05 Troponin I < 0.02 ng/ml (0.00-0.05) 08/26/17 10:05 Current Medications Generic Name Dose Route Start Last Admin Trade Name Freq PRN Reason Stop Dose Admin Diphenhydramine HCl 25 mg 08/26/17 16:24 08/28/17 23:14 Benadryl - PO 25 mg Q8H PRN Administration FOR ITCHING Heparin Sodium (Porcine) 5,000 unit 08/30/17 22:00 08/31/17 14:19 Heparin - SQ Not Given TID STACEY Lactated Ringer's 1,000 ml in 1,000 mls @ 100 mls/hr 08/29/17 11:58 08/31/17 14:19 Lactated Ringers Solution IV Not Given ASDIR STACEY Metoclopramide HCl 10 mg 08/30/17 15:00 08/31/17 10:53 Reglan Injection - IVPUSH 10 mg Q6H-IV STACEY Administration Ondansetron HCl 8 mg 08/29/17 10:47 08/30/17 15:38 Zofran Injection IVPB 8 mg Q6H PRN Administration NAUSEA Pantoprazole Sodium 40 mg 08/30/17 22:00 08/31/17 10:52 Protonix Iv IVPUSH 40 mg BID STACEY Administration Home Medications Medication Instructions Recorded Omeprazole 20 mg PO DAILY 01/01/18 Ranitidine HCl 150 mg PO BID 08/26/17 HIDA scan: delayed tracer extraction, hepatocelluar dz, and partial cbd Obstruction. MRCP demonstrates adequate positioning of biliary stent. MRCP ASSESSMENT AND PLAN: Patient is a 57 y/o gentleman with h/o PUD , and CCY 2002 who presented with acute onset of Abdominal pain and was found to have elevated LFTS with mild dilatation of CBD. Patient is tolerating liquid diet for now. will discontinue IV antibiotic for now. since there is no indication of infection at this time. # POD#4 s/p ERCP for Acute Choledocolithiasis /cholangitis presented with elevated LFTs. s/p ercp w/ sphincterotomy, gallstones extraction, with epi injection. As per GI note; : Had 4 CBD stones and pus extracted. Had bleeding after stone extractions so epinephrine was injected and a stent had to be placed. Findings werer discussed with family. Informed them of the need for repeat ERCP to remove stent in 3-4 months. s/p IV antibiotic Rocephin/Flagyl , will discontinue the Antibiotic today . ERCP report as per .s/p MRCP with no evidence stones, or tumors. Pending P-ANCA , check AMA , KATELYNN , ANd anti-LK abs .Patient's LFTs are improving . s/p MRCp and as per No need for ERCP at this time, HIDA scan was done as well. # h/o PUD: on PPI continue Dvt px: SCDs , Heparin sq GI px: PPI pending CA19-9 pending alpha protein tolelated liquid diet Visit type - Emergency Visit Emergency Visit: Yes ED Registration Date: 08/26/17 Care time: The patient presented to the Emergency Department on the above date and was hospitalized for further evaluation of their emergent condition. - New Patient This patient is new to me today: No - Critical Care Critical Care patient: No
[2017-08-31] MEDS ORDERED: ONDANSETRON 4 MG/2 ML VIAL IVPUSH PRN (14:57)
--- NOTE | 2017-08-31 15:24 | PN ---
Progress Note, Physician History of Present Illness: Clinically better, wants to eat. Family at bedside. Discussed imaging findings, labs - Current Medication List Current Medications: Active Medications Diphenhydramine HCl (Benadryl -) 25 mg PO Q8H PRN PRN Reason: FOR ITCHING Last Admin: 08/28/17 23:14 Dose: 25 mg Heparin Sodium (Porcine) (Heparin -) 5,000 unit SQ TID [facility] Last Admin: 08/31/17 14:19 Dose: Not Given Lactated Ringer's (Lactated Ringers Solution) 1,000 ml in 1,000 mls @ 100 mls/ hr IV ASDIR [facility] Last Admin: 08/31/17 14:19 Dose: Not Given Ondansetron HCl (Zofran Injection) 4 mg IVPUSH Q6H PRN PRN Reason: NAUSEA Pantoprazole Sodium (Protonix Iv) 40 mg IVPUSH BID [facility] Last Admin: 08/31/17 10:52 Dose: 40 mg - Objective Vital Signs: Vital Signs Temperature 97.7 F 08/31/17 14:53 Pulse Rate 70 08/31/17 14:53 Respiratory Rate 16 08/31/17 14:53 Blood Pressure 118/60 08/31/17 14:53 O2 Sat by Pulse Oximetry (%) 97 08/30/17 21:00 Constitutional: Yes: No Distress Eyes: Yes: Conjunctiva Clear HENT: Yes: Atraumatic Neck: Yes: Supple Cardiovascular: Yes: Regular Rate and Rhythm Respiratory: Yes: Regular Gastrointestinal: Yes: Soft. No: Tenderness Neurological: Yes: Alert, Oriented Labs: CBC, BMP 08/30/17 15:05 08/30/17 06:00 INR, PTT INR 1.14 (0.82-1.09) 08/30/17 06:00 Abnormal Lab Results 08/30/17 08/30/17 08/30/17 06:00 15:00 15:05 RBC 3.89 L Hemoglobin A1c % 6.1 H Total Bilirubin Direct Bilirubin AST ALT Alkaline Phosphatase Albumin Hepatitis A Ab Total Positive H Hep B Core Total Ab Positive H 08/30/17 15:05 RBC Hemoglobin A1c % Total Bilirubin 5.5 H Direct Bilirubin 4.6 H AST 85 H ALT 93 H Alkaline Phosphatase 528 H Albumin 2.8 L Hepatitis A Ab Total Hep B Core Total Ab - ....Imaging X-ray: Report Reviewed Cat Scan: Report Reviewed MRI: Report Reviewed (HIDA) Problem List - Problems (1) Cholestasis Code(s): K83.1 - OBSTRUCTION OF BILE DUCT (2) Biliary colic Code(s): K80.50 - CALCULUS OF BILE DUCT W/O CHOLANGITIS OR CHOLECYST W/O OBST (3) Obstructive jaundice Code(s): K83.8 - OTHER SPECIFIED DISEASES OF BILIARY TRACT Assessment/Plan Clinically well. This appears to be intrahepatic cholestasis of unclear etiology. Liver enzymes slowly rending down. A liver biopsy planned for Saturday. The patient apparently lives in [place] and his family wants to take him there. They also expressed desire to see a liver specialist at [facility].
[2017-09-01] MEDS: HEPARIN NA (PORCINE) 5,000 UNITS/ML 1ML VIAL SQ SCH ×3 (06:12→22:00)
[2017-09-01 07:00] LABS: BASO % 0.3 % (0-2.0); EOS % 1.8 % (0-4.5); HEMOGLOBIN 13.5 GM/dL (11.7-16.9); LYMPH % 27.7 % (8-40); MCHC 34.6 g/dl (32.0-35.9); MEAN CELL VOLUME 95.5 fl (80-96); MONO % 8.5 % (3.8-10.2); NEUT % 61.7 % (42.8-82.8); PLATELET COUNT 321 K/MM3 (134-434); RBC 4.09 M/mm3 (4.00-5.60); RDW 14.8 % (11.9-15.9); WHITE BLOOD COUNT 8.9 K/mm3 (4.0-10.0)
[2017-09-01 07:26] LABS: ANION GAP 8 (8-16); BLOOD UREA NITROGEN 13 mg/dL (7-18); CALCIUM 9.5 mg/dL (8.5-10.1); CHLORIDE 103 mmol/L (98-107); CO2 29 mmol/L (21-32); CREATININE 0.9 mg/dL (0.7-1.3); GLUCOSE,RANDOM 97 mg/dL (74-106); MAGNESIUM 2.1 mg/dL (1.8-2.4); PHOSPHOROUS 4.1 mg/dL (2.5-4.9); SGOT/AST 102 U/L (15-37); SGPT/ALT 104 U/L (12-78); SODIUM 140 mmol/L (136-145)
[2017-09-01 07:28] LABS: ALK PHOS 498 U/L (45-117); TOT PROT 7.5 g/dl (6.4-8.2)
[2017-09-01] MEDS: PANTOPRAZOLE 40 MG TABLET (FP) PO SCH ×2 (10:58→22:42)
[2017-09-01] MEDS ORDERED: ONDANSETRON 8 MG TABLET (FP) PO PRN (11:55)
--- NOTE | 2017-09-01 11:57 | PN ---
Progress Note, Physician History of Present Illness: Asymptomatic, off antiemetics. Bloodwork unchanged, tumor makers negative. - Current Medication List Current Medications: Active Medications Diphenhydramine HCl (Benadryl -) 25 mg PO Q8H PRN PRN Reason: FOR ITCHING Last Admin: 08/28/17 23:14 Dose: 25 mg Heparin Sodium (Porcine) (Heparin -) 5,000 unit SQ TID [facility] Last Admin: 09/01/17 06:12 Dose: Not Given Pantoprazole Sodium (Protonix -) 40 mg PO BID [facility] Last Admin: 09/01/17 10:58 Dose: 40 mg - Objective Vital Signs: Vital Signs Temperature 98.0 F 09/01/17 06:00 Pulse Rate 56 L 09/01/17 06:00 Respiratory Rate 18 09/01/17 06:00 Blood Pressure 142/75 09/01/17 06:00 O2 Sat by Pulse Oximetry (%) 97 08/30/17 21:00 Constitutional: Yes: Well Nourished, No Distress, Calm Eyes: Yes: Conjunctiva Clear Gastrointestinal: No: Tenderness, Vomiting Labs: CBC, BMP 09/01/17 06:30 09/01/17 06:30 INR, PTT INR 1.14 (0.82-1.09) 08/30/17 06:00 Abnormal Lab Results 08/30/17 09/01/17 06:00 06:30 Total Bilirubin 5.0 H AST 102 H ALT 104 H Alkaline Phosphatase 498 H Albumin 3.0 L Hepatitis A Ab Total Positive H Hep B Core Total Ab Positive H Problem List - Problems (1) Cholestasis Code(s): K83.1 - OBSTRUCTION OF BILE DUCT (2) Biliary colic Code(s): K80.50 - CALCULUS OF BILE DUCT W/O CHOLANGITIS OR CHOLECYST W/O OBST (3) Obstructive jaundice Code(s): K83.8 - OTHER SPECIFIED DISEASES OF BILIARY TRACT Assessment/Plan Clinically well. This appears to be intrahepatic cholestasis of unclear etiology. Liver enzymes are about the same. A liver biopsy planned for Saturday. The patient apparently lives in [place] and his family wants to take him there. They also expressed desire to see a liver specialist at [facility]. Staying to day for liver biopsy. Will change aniemetics to PRN
--- NOTE | 2017-09-01 14:58 | PN ---
Progress Note (short form) - Note Progress Note: Patient decided to stay over for Biopsy. Vital Signs Temperature 98.1 F 09/01/17 14:39 Pulse Rate 82 09/01/17 14:39 Respiratory Rate 16 09/01/17 14:39 Blood Pressure 129/70 09/01/17 14:39 O2 Sat by Pulse Oximetry (%) 97 08/30/17 21:00 GENERAL: NAD, AAOx3 EYES: conjunctiva clear, scleral icterus improving ENT: MMM LUNGS: CTAB HEART: RRR, S1S2 positive, ABDOMEN: Soft, diffuse mild tenderness, ND, NR. positive for BS. EXTRIMITIES: pulses are positive, no edema Neuro: AA0x3 , NFD CBCD WBC 8.9 K/mm3 (4.0-10.0) 09/01/17 06:30 RBC 4.09 M/mm3 (4.00-5.60) 09/01/17 06:30 Hgb 13.5 GM/dL (11.7-16.9) 09/01/17 06:30 Hct 39.0 % (35.4-49) 09/01/17 06:30 MCV 95.5 fl (80-96) 09/01/17 06:30 MCHC 34.6 g/dl (32.0-35.9) 09/01/17 06:30 RDW 14.8 % (11.9-15.9) 09/01/17 06:30 Plt Count 321 K/MM3 (134-434) 09/01/17 06:30 MPV 10.0 fl (7.5-11.1) 09/01/17 06:30 CMP Sodium 140 mmol/L (136-145) 09/01/17 06:30 Potassium 4.0 mmol/L (3.5-5.1) 09/01/17 06:30 Chloride 103 mmol/L (98-107) 09/01/17 06:30 Carbon Dioxide 29 mmol/L (21-32) 09/01/17 06:30 Anion Gap 8 (8-16) 09/01/17 06:30 BUN 13 mg/dL (7-18) D 09/01/17 06:30 Creatinine 0.9 mg/dL (0.7-1.3) 09/01/17 06:30 Creat Clearance w eGFR > 60 (>60) 09/01/17 06:30 Random Glucose 97 mg/dL (74-106) 09/01/17 06:30 Calcium 9.5 mg/dL (8.5-10.1) 09/01/17 06:30 Total Bilirubin 5.0 mg/dL (0.2-1.0) H 09/01/17 06:30 AST 102 U/L (15-37) H 09/01/17 06:30 ALT 104 U/L (12-78) H 09/01/17 06:30 Alkaline Phosphatase 498 U/L (45-117) H 09/01/17 06:30 Total Protein 7.5 g/dl (6.4-8.2) 09/01/17 06:30 Albumin 3.0 g/dl (3.4-5.0) L 09/01/17 06:30 CARDIAC ENZYMES Creatine Kinase 67 IU/L (39-308) 08/26/17 10:05 Troponin I < 0.02 ng/ml (0.00-0.05) 08/26/17 10:05 Current Medications Generic Name Dose Route Start Last Admin Trade Name Freq PRN Reason Stop Dose Admin Diphenhydramine HCl 25 mg 08/26/17 16:24 08/28/17 23:14 Benadryl - PO 25 mg Q8H PRN Administration FOR ITCHING Heparin Sodium (Porcine) 5,000 unit 08/30/17 22:00 09/01/17 06:12 Heparin - SQ Not Given TID [facility] Ondansetron HCl 8 mg 09/01/17 11:55 Zofran - PO Q8H PRN NAUSEA Pantoprazole Sodium 40 mg 09/01/17 10:00 09/01/17 10:58 Protonix - PO 40 mg BID [facility] Administration Home Medications Medication Instructions Recorded Omeprazole 20 mg PO DAILY 08/26/17 Ranitidine HCl 150 mg PO BID 08/26/17 Laboratory Tests 08/26/17 08/26/17 08/27/17 10:05 10:05 08:40 WBC 16.8 H Hemoglobin A1c % Ferritin Total Bilirubin 5.3 H Direct Bilirubin AST 176 H ALT 254 H Alkaline Phosphatase 709 H C-Reactive Protein Total Amylase Lipase Tumor Marker AFP CA 19-9 Antigen KATELYNN Screen Negative c-ANCA Proteinase 3 (PR3) p-ANCA Atypical p-ANCA Myeloperoxidase Ab Smooth Musc &DEBEADER Intrp Liver/Kid Microsomes Ab Hep A IgM Ab Confirm Hepatitis A Ab Total Hep Bs Antigen Hep Bs Antibody Hep B Core Total Ab Hepatitis C Antibody 08/27/17 08/27/17 08/27/17 08:40 09:49 09:49 WBC 6.9 D Hemoglobin A1c % Ferritin Total Bilirubin 6.0 H Direct Bilirubin AST 104 H D ALT 174 H D Alkaline Phosphatase 568 H C-Reactive Protein Total Amylase Lipase Tumor Marker AFP CA 19-9 Antigen KATELYNN Screen c-ANCA <1:20 Proteinase 3 (PR3) <3.5 p-ANCA <1:20 Atypical p-ANCA Pending Myeloperoxidase Ab <9.0 Smooth Musc &DEBEADER Intrp Pending Liver/Kid Microsomes Ab Pending Hep A IgM Ab Confirm Hepatitis A Ab Total Hep Bs Antigen Hep Bs Antibody Hep B Core Total Ab Hepatitis C Antibody 08/28/17 08/28/17 08/30/17 06:00 06:00 06:00 WBC 8.8 Hemoglobin A1c % Ferritin Total Bilirubin 5.2 H Direct Bilirubin AST 85 H ALT 129 H D Alkaline Phosphatase 489 H C-Reactive Protein 4.6 H Total Amylase Lipase Tumor Marker AFP CA 19-9 Antigen KATELYNN Screen c-ANCA Proteinase 3 (PR3) p-ANCA Atypical p-ANCA Myeloperoxidase Ab Smooth Musc &DEBEADER Intrp Liver/Kid Microsomes Ab Hep A IgM Ab Confirm Negative Hepatitis A Ab Total Positive H Hep Bs Antigen Negative Hep Bs Antibody Non reactive Hep B Core Total Ab Positive H Hepatitis C Antibody <0.1 08/30/17 08/30/17 08/30/17 06:00 06:00 06:00 WBC Hemoglobin A1c % Ferritin 482.619 H Total Bilirubin Direct Bilirubin AST ALT Alkaline Phosphatase C-Reactive Protein Total Amylase 70 Lipase Tumor Marker AFP Pending CA 19-9 Antigen Pending KATELYNN Screen c-ANCA Proteinase 3 (PR3) p-ANCA Atypical p-ANCA Myeloperoxidase Ab Smooth Musc &DEBEADER Intrp Liver/Kid Microsomes Ab Hep A IgM Ab Confirm Hepatitis A Ab Total Hep Bs Antigen Hep Bs Antibody Hep B Core Total Ab Hepatitis C Antibody 08/30/17 08/30/17 15:00 15:05 WBC Hemoglobin A1c % 6.1 H Ferritin Total Bilirubin 5.5 H Direct Bilirubin 4.6 H AST 85 H ALT 93 H Alkaline Phosphatase 528 H C-Reactive Protein Total Amylase Lipase 321 Tumor Marker AFP CA 19-9 Antigen KATELYNN Screen c-ANCA Proteinase 3 (PR3) p-ANCA Atypical p-ANCA Myeloperoxidase Ab Smooth Musc &DEBEADER Intrp Liver/Kid Microsomes Ab Hep A IgM Ab Confirm Hepatitis A Ab Total Hep Bs Antigen Hep Bs Antibody Hep B Core Total Ab Hepatitis C Antibody HIDA scan: delayed tracer extraction, hepatocelluar dz, and partial cbd Obstruction. MRCP demonstrates adequate positioning of biliary stent. MRCP ASSESSMENT AND PLAN: Patient is a 57 y/o gentleman with h/o PUD , and CCY 2002 who presented with acute onset of Abdominal pain and was found to have elevated LFTS with mild dilatation of CBD. # Intrahepatic cholestasis of unclear etiology, Liver enzymes continue to be high, Anti smooth muscle elevated, Patient agreed for Liver Bx in am by IR. monitor LFTs. # POD#5 s/p ERCP for Acute Choledocolithiasis /cholangitis presented with elevated LFTs. s/p ercp w/ sphincterotomy, gallstones extraction, with epi injection. As per GI note; : Had 4 CBD stones and pus extracted. Had bleeding after stone extractions so epinephrine was injected and a stent had to be placed. # h/o PUD: on PPI continue po Dvt px: SCDs , Heparin sq GI px: PPI CA19-9 within nl limit alpha protein NL soft diet now everything was switched to po npo after midnight Visit type - Emergency Visit Emergency Visit: Yes ED Registration Date: 08/26/17 Care time: The patient presented to the Emergency Department on the above date and was hospitalized for further evaluation of their emergent condition. - New Patient This patient is new to me today: No - Critical Care Critical Care patient: No
[2017-09-01] MEDS ORDERED: ONDANSETRON 4 MG TABLET PO ONE (15:35)
[2017-09-02 08:30] LABS: BASO % 0.9 % (0-2.0); EOS % 1.6 % (0-4.5); HEMATOCRIT 39.5 % (35.4-49); LYMPH % 25.2 % (8-40); MCH 31.8 pg (25.7-33.7); MCHC 32.9 g/dl (32.0-35.9); MEAN CELL VOLUME 96.7 fl (80-96); MEAN PLT VOLUME 10.6 fl (7.5-11.1); MONO % 9.5 % (3.8-10.2); NEUT % 62.8 % (42.8-82.8); PLATELET COUNT 282 K/MM3 (134-434); RBC 4.09 M/mm3 (4.00-5.60); RDW 14.9 % (11.9-15.9); WHITE BLOOD COUNT 8.5 K/mm3 (4.0-10.0)
[2017-09-02 09:03] LABS: ALBUMIN 2.9 g/dl (3.4-5.0); ALK PHOS 468 U/L (45-117); ANION GAP 11 (8-16); BILIRUBIN,DIRECT 3.2 mg/dL (0.0-0.2); BILIRUBIN,TOTAL 4.2 mg/dL (0.2-1.0); BLOOD UREA NITROGEN 17 mg/dL (7-18); CALCIUM 9.2 mg/dL (8.5-10.1); CHLORIDE 103 mmol/L (98-107); CO2 27 mmol/L (21-32); CREATININE 0.9 mg/dL (0.7-1.3); GLUCOSE,RANDOM 92 mg/dL (74-106); SGOT/AST 122 U/L (15-37); SGPT/ALT 127 U/L (12-78); SODIUM 141 mmol/L (136-145); TOT PROT 7.4 g/dl (6.4-8.2)
[2017-09-02] MEDS: PANTOPRAZOLE 40 MG TABLET (FP) PO SCH ×2 (09:19→21:31)
--- NOTE | 2017-09-02 11:31 | PN ---
Progress Note, Physician History of Present Illness: Asymptomatic Bloodwork results improved, family at [facility]. Liver biopsy is scheduled for today - Current Medication List Current Medications: Active Medications Diphenhydramine HCl (Benadryl -) 25 mg PO Q8H PRN PRN Reason: FOR ITCHING Last Admin: 08/28/17 23:14 Dose: 25 mg Heparin Sodium (Porcine) (Heparin -) 5,000 unit SQ TID [facility] Last Admin: 09/01/17 22:00 Dose: Not Given Ondansetron HCl (Zofran -) 8 mg PO Q8H PRN PRN Reason: NAUSEA Last Admin: 09/01/17 15:37 Dose: 8 mg Pantoprazole Sodium (Protonix -) 40 mg PO BID [facility] Last Admin: 09/02/17 09:19 Dose: 40 mg - Objective Vital Signs: Vital Signs Temperature 98.1 F 09/02/17 07:47 Pulse Rate 52 L 09/02/17 07:47 Respiratory Rate 20 09/02/17 07:47 Blood Pressure 133/57 09/02/17 07:47 O2 Sat by Pulse Oximetry (%) 97 08/30/17 21:00 Constitutional: Yes: Well Nourished, No Distress, Calm HENT: Yes: Atraumatic Neck: Yes: Supple Cardiovascular: Yes: Regular Rate and Rhythm Respiratory: Yes: Regular Gastrointestinal: Yes: Normal Bowel Sounds, Soft. No: Melena, Rectal Bleeding, Tenderness, Tenderness, Epigastrium, Tenderness, Rebound, Vomiting Neurological: Yes: Alert, Oriented Labs: CBC, BMP 09/02/17 07:00 09/02/17 07:00 INR, PTT INR 1.14 (0.82-1.09) 08/30/17 06:00 Laboratory Results - last 24 hr 09/02/17 09/02/17 07:00 07:00 WBC 8.5 RBC 4.09 Hgb 13.0 Hct 39.5 MCV 96.7 H MCH 31.8 MCHC 32.9 RDW 14.9 Plt Count 282 MPV 10.6 Neutrophils % 62.8 Lymphocytes % 25.2 Monocytes % 9.5 Eosinophils % 1.6 Basophils % 0.9 Sodium 141 Potassium 4.0 Chloride 103 Carbon Dioxide 27 Anion Gap 11 BUN 17 D Creatinine 0.9 Creat Clearance w eGFR > 60 Random Glucose 92 Calcium 9.2 Total Bilirubin 4.2 H Direct Bilirubin 3.2 H D AST 122 H ALT 127 H D Alkaline Phosphatase 468 H Total Protein 7.4 Albumin 2.9 L Problem List - Problems (1) Cholestasis Code(s): K83.1 - OBSTRUCTION OF BILE DUCT (2) Biliary colic Code(s): K80.50 - CALCULUS OF BILE DUCT W/O CHOLANGITIS OR CHOLECYST W/O OBST (3) Obstructive jaundice Code(s): K83.8 - OTHER SPECIFIED DISEASES OF BILIARY TRACT Assessment/Plan Clinically well. Asymptomatic with labs trending down D/c home after liver biopsy - observe for 4 hrs post procedure. follow up biopsy results and repeat blood work as OP in 1 week
--- NOTE | 2017-09-02 13:42 | PN ---
Teaching Attending Note Name of Resident: Linda Ruth ATTENDING PHYSICIAN STATEMENT I saw and evaluated the patient. I reviewed the resident's note and discussed the case with the resident. I agree with the resident's findings and plan as documented. SUBJECTIVE: Patient is feeling better, able to tolerate diet. going for Liver Bx. Clinically better. OBJECTIVE: Vital Signs Temperature 98.3 F 09/02/17 09:00 Pulse Rate 54 L 09/02/17 09:00 Respiratory Rate 18 09/02/17 09:00 Blood Pressure 134/59 09/02/17 09:00 O2 Sat by Pulse Oximetry (%) 97 08/30/17 21:00 CBCD WBC 8.5 K/mm3 (4.0-10.0) 09/02/17 07:00 RBC 4.09 M/mm3 (4.00-5.60) 09/02/17 07:00 Hgb 13.0 GM/dL (11.7-16.9) 09/02/17 07:00 Hct 39.5 % (35.4-49) 09/02/17 07:00 MCV 96.7 fl (80-96) H 09/02/17 07:00 MCHC 32.9 g/dl (32.0-35.9) 09/02/17 07:00 RDW 14.9 % (11.9-15.9) 09/02/17 07:00 Plt Count 282 K/MM3 (134-434) 09/02/17 07:00 MPV 10.6 fl (7.5-11.1) 09/02/17 07:00 CMP Sodium 141 mmol/L (136-145) 09/02/17 07:00 Potassium 4.0 mmol/L (3.5-5.1) 09/02/17 07:00 Chloride 103 mmol/L (98-107) 09/02/17 07:00 Carbon Dioxide 27 mmol/L (21-32) 09/02/17 07:00 Anion Gap 11 (8-16) 09/02/17 07:00 BUN 17 mg/dL (7-18) D 09/02/17 07:00 Creatinine 0.9 mg/dL (0.7-1.3) 09/02/17 07:00 Creat Clearance w eGFR > 60 (>60) 09/02/17 07:00 Random Glucose 92 mg/dL (74-106) 09/02/17 07:00 Calcium 9.2 mg/dL (8.5-10.1) 09/02/17 07:00 Total Bilirubin 4.2 mg/dL (0.2-1.0) H 09/02/17 07:00 AST 122 U/L (15-37) H 09/02/17 07:00 ALT 127 U/L (12-78) H D 09/02/17 07:00 Alkaline Phosphatase 468 U/L (45-117) H 09/02/17 07:00 Total Protein 7.4 g/dl (6.4-8.2) 09/02/17 07:00 Albumin 2.9 g/dl (3.4-5.0) L 09/02/17 07:00 CARDIAC ENZYMES Creatine Kinase 67 IU/L (39-308) 08/26/17 10:05 Troponin I < 0.02 ng/ml (0.00-0.05) 08/26/17 10:05 Current Medications Generic Name Dose Route Start Last Admin Trade Name Freq PRN Reason Stop Dose Admin Diphenhydramine HCl 25 mg 08/26/17 16:24 08/28/17 23:14 Benadryl - PO 25 mg Q8H PRN Administration FOR ITCHING Heparin Sodium (Porcine) 5,000 unit 08/30/17 22:00 09/01/17 22:00 Heparin - SQ Not Given TID [facility] Ondansetron HCl 8 mg 09/01/17 11:55 09/01/17 15:37 Zofran - PO 8 mg Q8H PRN Administration NAUSEA Pantoprazole Sodium 40 mg 09/01/17 10:00 09/02/17 09:19 Protonix - PO 40 mg BID [facility] Administration Home Medications Medication Instructions Recorded Omeprazole 20 mg PO DAILY 08/26/17 Ranitidine HCl 150 mg PO BID 08/26/17 PE: per resident's note HIDA scan: delayed tracer extraction, hepatocelluar dz, and partial CBD Obstruction. MRCP demonstrates adequate positioning of biliary stent. MRCP ASSESSMENT AND PLAN: Patient is a 57 y/o gentleman with h/o PUD , and CCY 2002 who presented with acute onset of Abdominal pain and was found to have elevated LFTS with mild dilatation of CBD. # Intrahepatic cholestasis of unclear etiology, Liver enzymes are trending down. Anti smooth muscle elevated, Patient went for Liver Bx today by IR. LFTs trending down slowly. # POD 6 s/p ERCP for Acute Choledocolithiasis /cholangitis presented with elevated LFTs. s/p ercp w/ sphincterotomy, gallstones extraction, with epi injection. As per GI note; : Had 4 CBD stones and pus extracted. Had bleeding after stone extractions so epinephrine was injected and a stent had to be placed. Repeat ERCP in 3 months to remove the stent as per # h/o PUD: on PPI continue po Dvt px: SCDs ; GI px: PPI CA19-9 within nl limit alpha protein NL As per GI , patient can go home after liver biopsy -will observe for 4 hrs post procedure. follow up biopsy results and repeat blood work as OP in 1 week, follow with in a week upon discharge. And with Dr. Urias for stent removal within 3 months. Patient was instructed. will repeat CBC if negative dmitry send the patient home.
--- NOTE | 2017-09-02 18:57 | PN ---
Physical Exam: SUBJECTIVE: Patient seen and examined. Offers no complaints. Tolerating regular diet without n/v. No pain after liver biopsy. OBJECTIVE: Vital Signs Period Temp Pulse Resp BP Sys/Gill Pulse Ox Last 24 Hr 98.1 F-98.3 F 52-76 14-20 132-160/57-70 96-100 GENERAL: nad, aaox3 EYES: conjunctiva clear, scleral icterus ENT: MMM LUNGS: CTAB HEART: rrr, normal s1/s2, no m/r/g ABDOMEN: Soft, non-distended, mild epigastric ttp, RUQ liver biopsy bandage c/d/ i LOWER EXTREMITIES: 2+ DP pulses, wwp, no edema CBC, BMP 09/02/17 07:00 09/02/17 07:00 Hepatic Panel Total Bilirubin 4.2 mg/dL (0.2-1.0) H 09/02/17 07:00 Direct Bilirubin 3.2 mg/dL (0.0-0.2) H D 09/02/17 07:00 AST 122 U/L (15-37) H 09/02/17 07:00 ALT 127 U/L (12-78) H D 09/02/17 07:00 Alkaline Phosphatase 468 U/L (45-117) H 09/02/17 07:00 Albumin 2.9 g/dl (3.4-5.0) L 09/02/17 07:00 Active Medications Diphenhydramine HCl (Benadryl -) 25 mg PO Q8H PRN PRN Reason: FOR ITCHING Last Admin: 08/28/17 23:14 Dose: 25 mg Heparin Sodium (Porcine) (Heparin -) 5,000 unit SQ TID [facility] Last Admin: 09/01/17 22:00 Dose: Not Given Ondansetron HCl (Zofran -) 8 mg PO Q8H PRN PRN Reason: NAUSEA Last Admin: 09/01/17 15:37 Dose: 8 mg Pantoprazole Sodium (Protonix -) 40 mg PO BID [facility] Last Admin: 09/02/17 09:19 Dose: 40 mg ASSESSMENT/PLAN: 57yo man with PMH of PUD and CCY (2002) who presented with acute onset abdominal pain and found to have elevated LFTs and ERCP findings c/w choledocholithiasis and cholangitis. #nausea, jaundice - etiology unclear, r/o hepatocellular disease, anti-Smooth muscle Ab+ (?autoimmune hepatitis); AFP and CA19-9 wnl Unlikely obstructive jaundice; MRCP, HIDA, and CT Abd revealed bile decompression and patent stent; -GI following. s/p Liver biopsy today -zofran for nausea #POD6 s/p ERCP w/ stent and sphincterotomy for choledocholithiasis/cholangitis, 4 CBD stones extracted with pus No signs of infection, no leukocytosis, afebrile will d/c Cefazolin and flagyl ( received 4 days total) -Monitor for signs of pancreatitis, lipase, LFTs #h/o PUD - Protonix 40mg IV BID #FEN: PO hydration / lytes wnl / soft diet #PPX -DVT - heparin tid -GI - on PPI #DISPO: M/S, likely d/c tomorrow if H&H stable FULL code d/w Dr. Salvador Ruth MD PGY1 - Internal Medicine Visit type - Emergency Visit Emergency Visit: No - New Patient This patient is new to me today: No - Critical Care Critical Care patient: No
--- NOTE | 2017-09-02 20:21 | DS ---
Physical Exam: SUBJECTIVE: Patient seen and examined OBJECTIVE: Vital Signs Period Temp Pulse Resp BP Sys/Gill Pulse Ox Last 24 Hr 98.1 F-98.3 F 52-76 14-20 132-160/57-70 96-100 PHYSICAL EXAM GENERAL: The patient is awake, alert, and fully oriented, in no acute distress. HEAD: Normal with no signs of trauma. EYES: PERRL, extraocular movements intact, sclera anicteric, conjunctiva clear. ENT: Ears normal, nares patent, oropharynx clear without exudates, moist mucous membranes. NECK: Trachea midline, full range of motion, supple. LUNGS: Breath sounds equal, clear to auscultation bilaterally, no wheezes, no crackles, no accessory muscle use. HEART: Regular rate and rhythm, S1, S2 without murmur, rub or gallop. ABDOMEN: Soft, nontender, nondistended, normoactive bowel sounds, no guarding, no rebound, no hepatosplenomegaly, no masses. EXTREMITIES: 2+ pulses, warm, well-perfused, no edema. NEUROLOGICAL: Cranial nerves II through XII grossly intact. Normal speech, gait not observed. PSYCH: Normal mood, normal affect. SKIN: Warm, dry, normal turgor, no rashes or lesions noted. LABS Laboratory Results - last 24 hr 09/02/17 09/02/17 07:00 07:00 WBC 8.5 RBC 4.09 Hgb 13.0 Hct 39.5 MCV 96.7 H MCH 31.8 MCHC 32.9 RDW 14.9 Plt Count 282 MPV 10.6 Neutrophils % 62.8 Lymphocytes % 25.2 Monocytes % 9.5 Eosinophils % 1.6 Basophils % 0.9 Sodium 141 Potassium 4.0 Chloride 103 Carbon Dioxide 27 Anion Gap 11 BUN 17 D Creatinine 0.9 Creat Clearance w eGFR > 60 Random Glucose 92 Calcium 9.2 Total Bilirubin 4.2 H Direct Bilirubin 3.2 H D AST 122 H ALT 127 H D Alkaline Phosphatase 468 H Total Protein 7.4 Albumin 2.9 L HOSPITAL COURSE: Date of Admission:08/26/17 Date of Discharge: 09/02/17 Discharge Summary Reason For Visit: EPIGASTRIC PAIN Current Active Problems Biliary colic (Acute) Cholestasis (Acute) Epigastric pain (Acute) History of laparoscopic cholecystectomy (Acute) History of peptic ulcer (Acute) Obstructive jaundice (Acute) Transaminitis (Acute) Condition: Stable - Instructions Diet, Activity, Other Instructions: You were admitted to the hospital and found to have 4 stones in your common bile duct. You had a procedure called ERCP and a stent was placed. Your liver enzymes were also found to be abnormal and you had a liver biopsy done. Recommendations: -You may resume your regular daily activities as tolerated. You should have keep a low-sugar and low-fat diet. Medications: -Stop taking Zantac and Omeprazole. -Take Protonix (Pantoprazole) 40mg twice per day. Discuss with Dr. Phillip or your local Sociology Teacher (stomach doctor) when you should stop taking this medication. -You are being prescribed Zofran 4mg. You can take 1 tablet of this medication 8 hours apart for for severe nausea. -You can take Benadryl 25mg every 8 hours if you experience itching. -Avoid taking medications containing Tylenol (Acetaminophen), which can affect your liver or any medication than can go through your liver. Check with your pharmacist or physician which medications are safe to take. Follow-ups: -Please call Dr. Phillip's office for the liver biopsy results in 1 week (Office number [phone]). -Have blood work done in 1 week and have the results faxed to your local primary care physician or local Sociology Teacher to follow your liver enzymes. -You need to have a repeat ERCP to remove the stent in 3-[address] Watkins's office (Office number [phone]). Please return to the Emergency Department if you have worsening symptoms, can't keep down any food, have fever or chills, or any new or concerning symptoms. Referrals: Juan Alberto Phillip MD [Staff Physician] - 1 Week Hari Watkins MD [Staff Physician] - 11/25/17 (You need to have repeat ERCP to remove your stent in 3-4 months.) Disposition: HOME - Home Medications Comprehensive Discharge Medication List: Ambulatory Orders Diphenhydramine HCl [Benadryl Capsule -] 25 mg PO Q8H PRN capsule 09/02/17 Miscellaneous Drug Not In Syst [Outpatient Lab Test] 1 each ASDIR #1 misc 04/12 Ondansetron HCl [Zofran] 4 mg PO PRN PRN #2 tablet 09/02/17 Pantoprazole Sodium [Protonix -] 40 mg PO BID #60 tablet.ec 09/02/17
[2017-09-02 20:56] LABS: HEMATOCRIT 38.8 % (35.4-49); HEMOGLOBIN 13.1 GM/dL (11.7-16.9); MCH 32.5 pg (25.7-33.7); MCHC 33.7 g/dl (32.0-35.9); MEAN CELL VOLUME 96.6 fl (80-96); MEAN PLT VOLUME 10.2 fl (7.5-11.1); PLATELET COUNT 267 K/MM3 (134-434); RBC 4.02 M/mm3 (4.00-5.60); WHITE BLOOD COUNT 8.2 K/mm3 (4.0-10.0)
[2017-09-03] MEDS: HEPARIN NA (PORCINE) 5,000 UNITS/ML 1ML VIAL SQ SCH (05:58)
[2017-09-03] MEDS: PANTOPRAZOLE 40 MG TABLET (FP) PO SCH (10:04)
[2017-09-03] MEDS ORDERED: ONDANSETRON 4 MG TABLET PO ONE (10:05)
[2017-09-03] MEDS: ONDANSETRON 4 MG TABLET PO PRN (10:07)
[2017-09-03 10:12] VITALS: BP 124/71; PULSE 60; TEMP 98.4
--- NOTE | 2017-09-06 10:54 | PATH ---
Surgical Pathology Report Patient Name: RG HOLLAND Med. Rec. #: [id number] /Age/Gender: 1960 (Age: 57) / M Account: [id number] Location: [facility] MED/SURG Taken: 09/02/2017 Received: 09/02/2017 Reported: 09/06/2017 Physicians: Liz Gonzales M.D. Orest Kozicky, M.D. Leon Kogan, M.D. Specimen(s) Received LIVER BIOPSY Clinical History 57-year-old male with history of cholelithiasis status post stent placement with persistent elevated LFTs and decreased bilirubin, suspicious acute liver injury Final Diagnosis LIVER, NEEDLE CORE BIOPSY: MILD CHOLESTATIC HEPATITIS, SEE COMMENT. PATCHY STEATOSIS (<10%). TRICHROME STAIN SHOWS NO SIGNIFICANT FIBROSIS. IRON STAIN SHOWS FOCAL CIRRHOSIS IN KUPFFER CELLS ONLY, SUGGESTIVE OF SECONDARY IRON OVERLOAD. NEGATIVE FOR CHRONIC HEPATITIS, STEATOHEPATITIS, ACUTE CHOLANGITIS, GRANULOMAS, OR MALIGNANCY. Comment: This case was seen in consultation by Dr. Brandy Rivas, who rendered the above diagnosis. Cord contains following comment. "The biopsy shows only 4-5 partial portal tracts. The portal tracts show minimal patchy non--specific inflammation. A few bile ducts are present are unremarkable. Immunostain for CK7 highlights chronic hepatocellular cholestasis in periportal regions with focal ductular reaction. There are few foci of lobular inflammatory activity and diffuse canalicular cholestasis. The findings are consistent with a mild cholestatic hepatitis. Characteristic portal tract changes of large bile duct obstruction (i.e. portal tract edema and marked periportal ductular reaction with associated with neutrophils) are not present in this sample. The differential diagnosis includes drug/toxin-induced injury, large bile duct obstruction, and less likely other bile duct diseases. Clinical, radiologic, and laboratory correlation recommended. Case discussed with Dr. Phillip." See full consultation report for additional details. Electronically Signed Wilfred Jordan M.D. Gross Description Received in formalin labeled "liver tissue," are 5 león, cylindrical portions of soft tissue ranging from 0.5-1.6 cm in length and averaging 0.1 cm in diameter. The specimens are submitted in toto in one cassette. /09/02/201709/02/2017
== END 2017-09-03 11:36 | disposition home or self-care (01) | DRG 445 ==
LOC: JER 09:01 → JERBED 12:42 → J8W 16:37
PROVIDERS: ADMIT Internal Medicine; ATTEND Internal Medicine
PROC: 0F798DZ Dilation of Common Bile Duct with Intraluminal Device, Via Natural or Artificial Opening Endoscopic (ICD-10-PCS; 2017-08-27)
PROC: 0F7D8DZ Dilation of Pancreatic Duct with Intraluminal Device, Via Natural or Artificial Opening Endoscopic (ICD-10-PCS; 2017-08-27)
PROC: 3E0H8GC Introduction of Other Therapeutic Substance into Lower GI, Via Natural or Artificial Opening Endoscopic (ICD-10-PCS; 2017-08-27)
PROC: 0FC98ZZ Extirpation of Matter from Common Bile Duct, Via Natural or Artificial Opening Endoscopic (ICD-10-PCS; principal; 2017-08-27 14:00)
PROC: 0FB03ZX Excision of Liver, Percutaneous Approach, Diagnostic (ICD-10-PCS; 2017-09-02)
DX: K80.30 Calculus of bile duct with cholangitis, unspecified, without obstruction (principal); R10.13 Epigastric pain; R74.0 Nonspecific elevation of levels of transaminase and lactic acid dehydrogenase [LDH]; F17.200 Nicotine dependence, unspecified, uncomplicated; K83.8 Other specified diseases of biliary tract; E80.6 Other disorders of bilirubin metabolism; E86.9 Volume depletion, unspecified; Z87.11 Personal history of peptic ulcer disease
CPT/HCPCS: 36415; 74019-TC; 74150-TC; 74182-TC; 74330-TC; 76705-TC; 76942-TC; 78226-TC; 80053; 80076; 81003; 81015; 82105; 82150; 82248; 82550; 82728; 83036; 83516; 83520; 83540; 83550; 83605; 83690; 83735; 84100; 84484; 85025; 85027; 85610; 86038; 86140; 86256; 86301; 86376; 86704; 86706; 86708; 86803; 87040; 87086; 87340; 87899; 88307-TC; 93005; 93010; 94760; 99285-25; A9537; A9576; J1644